=== PATIENT | female | born 1930 | race Caucasian/White ===

== ENCOUNTER 2016-09-27 02:41 | Day surgery (SDC) | payer MEDICARE, OTHER ==
[~2016-09-27] VITALS: Ht 162.6 cm; Wt 60.9 kg
[~2016-09-27 02:41] MED LIST: AMITIZA24 MCG PO; BUTALB-APAP-CA1 EACH PO; COUMADIN2 MG PO; COUMADIN3 MG PO; CRESTOR5 MG PO; DOXYCYCLINE HY100 M2 PO; HYDROCODONE-APA1 TAB PO; NEXIUM40 MG PO; RESTORIL15 MG PO; RYTHMOL225 MG; RYTHMOL225 MG PO; [UNRECOGNIZED DRUG - OTHER]
[2016-09-27 03:33] LABS: APTT 55.2 SECONDS (22.8-39.4)
[2016-09-27 03:35] LABS: ALBUMIN 2.4 g/dL (3.4-5.0); ANION GAP 11.7 mmol/L (8-16); BASOPHILS 0.2 % (0.0-2.0); BILIRUBIN - TOTAL 0.13 mg/dL (0.2-1.3); CALCIUM 7.7 mg/dL (8.5-10.1); CARBON DIOXIDE 23.1 mmol/L (21.0-32.0); CREATININE - SERUM 0.8 mg/dL (0.6-1.3); EOSINOPHILS 1.3 % (0-7); IMMATURE GRANULOCYTES 0.5 % (0-5); LYMPHOCYTES 11.7 % (15-50); MCH 28.9 pg (26.0-34.0); MCHC 31.2 g/dL (31.0-37.0); MCV 92.8 fL (80.0-100.0); MEAN PLATELET VOLUME 10.1 fL (7.4-10.4); MONOCYTES 6.2 % (2-11); NEUTROPHILS 80.1 % (40-80); PLATELET COUNT 193 10x3/uL (130-400); POTASSIUM - SERUM 3.8 mmol/L (3.5-5.1); PROTEIN - SERUM 5.1 g/dL (6.4-8.2); RDW 15.6 % (11.5-14.5); WBC 6.3 10x3/uL (4.8-10.8)
[2016-09-27 03:36] LABS: RBC 1.52 10x6/uL (4.00-5.40)
[2016-09-27 03:37] LABS: HEMATOCRIT 14.1 % (36.0-48.0); HEMOGLOBIN 4.4 g/dL (12-16)
[2016-09-27 03:40] LABS: INR 8.59 (0.85-1.17); PROTIME 72.9 SECONDS (11.6-15.0)
[2016-09-27 03:43] LABS: TROPONIN-I 0.025 ng/mL (0.000-0.060)
--- NOTE | 2016-09-27 05:45 | NUR ---
PT ARRIVES FROM ER VIA STRETCHER. ASSISTED INTO BED VIA NURSES X2. PT WITH BLOOD TRANSFUSING TO HER LT HAND WITHOUT COMPLICATION. VSS, AFEBRILE. MEDICATIONS RECONCILED AT THE BEDSIDE. ADMISSION ASSESSMENT AND HISTORY COMPLETED. PT DENIES ANY CURRENT C/O PAIN. WILL CONT TO MONITOR.
[2016-09-27 05:51] VITALS: BP 100/56; Ht 162.6 cm; Wt 60.9 kg
[2016-09-27] MEDS ORDERED: VITAMIN D250000 UNIT PO (05:51)
[2016-09-27 05:55] VITALS: BP 106/45
--- NOTE | 2016-09-27 07:20 | NUR ---
RECEIVED PT PLAN OF CARE. NO OTHER NEEDS AT THIS TIME. WILL CONTINUE PLAN OF CARE.
--- NOTE | 2016-09-27 07:43 | NUR ---
PT IS ALERT. ASSESSMENT DONE PER FLOWSHEET. NO CO PAIN AT THIS TIME. WILL CONTINUE TO MONITOR.
--- NOTE | 2016-09-27 07:44 | NUR ---
SECOND UNIT PRBC STARTED AT THIS TIME. WILL CONTINUE TO MONITOR.
[2016-09-27 07:49] VITALS: BP 97/46
--- NOTE | 2016-09-27 10:37 | NUR ---
SECOND UNIT PRBC COMPLETE. NO OTHER NEEDS AT THIS TIME.
[2016-09-27 11:47] VITALS: BP 100/46
[2016-09-27 12:26] LABS: HEMATOCRIT 21.8 % (36.0-48.0)
[2016-09-27 12:28] LABS: HEMOGLOBIN 7.2 g/dL (12-16)
--- NOTE | 2016-09-27 13:00 | NUR ---
PT IS ALERT. NO SS OF DISTRESS AT THIS TIME. WILL CONTINUE TO MONITOR.
[2016-09-27 15:54] VITALS: BP 96/44
[2016-09-27 19:05] LABS: HEMATOCRIT 23.8 % (36.0-48.0); HEMOGLOBIN 7.7 g/dL (12-16)
--- NOTE | 2016-09-27 20:00 | NUR ---
REPORT RECEIVED AND CARE ASSUMED. PATIENT IS ALERT AND LYING IN BED READING A BOOK. DENIES ANY NEEDS OR DISCOMFORT. WILL CONTINUE TO MONITOR.
[2016-09-27 20:37] VITALS: BP 121/58
--- NOTE | 2016-09-28 00:01 | NUR ---
MADE NPO PAST MIDNIGHT FOR ECG IN AM WITH TIVA.
--- NOTE | 2016-09-28 00:15 | NUR ---
FIRST UNIT PRBC HUNG PER PROTOCOL WITH NS.
[2016-09-28 00:17] VITALS: BP 107/52
--- NOTE | 2016-09-28 03:15 | NUR ---
BLOOD TRANSFUSION COMPLETED.
--- NOTE | 2016-09-28 03:30 | NUR ---
SECOND UNIT PBBC HUNG.
[2016-09-28 04:29] VITALS: BP 113/56
[2016-09-28 06:01] LABS: BASOPHILS 0.2 % (0.0-2.0); EOSINOPHILS 1.6 % (0-7); IMMATURE GRANULOCYTES 0.9 % (0-5); LYMPHOCYTES 16.7 % (15-50); MCH 28.7 pg (26.0-34.0); MCHC 33.3 g/dL (31.0-37.0); MEAN PLATELET VOLUME 10.1 fL (7.4-10.4); MONOCYTES 7.4 % (2-11); NEUTROPHILS 73.2 % (40-80); RDW 17.1 % (11.5-14.5)
[2016-09-28 06:12] LABS: MCV 86.2 fL (80.0-100.0); PLATELET COUNT 99 10x3/uL (130-400); RBC 3.48 10x6/uL (4.00-5.40); WBC 4.3 10x3/uL (4.8-10.8)
--- NOTE | 2016-09-28 06:30 | NUR ---
SECOND UNIT PRBC COMPLETED. LYING IN BED WITH EYES CLOSED.
[2016-09-28 06:39] LABS: INR 1.33 (0.85-1.17); PROTIME 16.3 SECONDS (11.6-15.0)
[2016-09-28 06:41] LABS: CALCIUM 7.5 mg/dL (8.5-10.1); CARBON DIOXIDE 26.5 mmol/L (21.0-32.0); CHLORIDE - SERUM 109 mmol/L (98-107); CREATININE - SERUM 0.6 mg/dL (0.6-1.3); POTASSIUM - SERUM 3.4 mmol/L (3.5-5.1); SODIUM 143 mmol/L (136-145); eGFR NON AFRICAN AMERICAN > 90 mL/min (90-120)
[2016-09-28 06:50] LABS: CALC OSMOLALITY 285 mosm/kg (275-300); GLUCOSE 86 mg/dL (74-106); UREA NITROGEN 18 mg/dL (7-18)
[2016-09-28 07:06] LABS: PLATELET ESTIMATE DECREASED
--- NOTE | 2016-09-28 07:26 | NUR ---
RECEIVED PT REPORT. WILL CONTINUE PLAN OF CARE. NO OTHER NEEDS AT THIS TIME. WILL CONTINUE TO MONITOR. STUDENT NURSE AT BEDSIDE.
[2016-09-28 07:45] VITALS: BP 122/52
--- NOTE | 2016-09-28 10:26 | CN ---
PATIENT NAME:PRINCESS MULLIGAN MEDICAL RECORD: [id number] : 34 LOCATION:D. D.2110 ADMIT DATE: 09/27/16 ACCOUNT: [id number] CONSULTING PHYSICIAN: RISA HERNANDEZ MD REFERRING PHYSICIAN: WENCESLAO HELM DO DATE OF CONSULTATION: 09/27/2016 REFERRING PHYSICIAN: Dr. Wenceslao Helm. HISTORY OF PRESENT ILLNESS: The patient is an 86-year-old white female with history of AFib and valvular heart disease, on Coumadin therapy, who was basically admitted with progressive weakness and severe anemia with hematocrit of 14 and with a normal MCV. She did have a heme-positive stool. Her INR was 8. She denies any melena, hematochezia or abdominal pain. She is on baby aspirin as well. She denies any other NSAID use. I was asked to see the patient in this regard. She apparently had similar presentation in February of this year. She apparently had an EGD and colonoscopy, which was unremarkable. Her Coumadin was stopped at that time and she had no further problems of anemia until just a month or so ago when she underwent a valvular heart replacement and Coumadin was restarted. Her INR was 8 as noted above and she presented with hematocrit of 14. PAST MEDICAL HISTORY: As above. She also had skin cancer. PAST SURGICAL HISTORY: Remarkable for cataract surgery, appendectomy, tonsillectomy, kidney stone removal, D&C and her recent valvular heart procedure. ALLERGIES: SULFA, TETANUS, PENICILLIN AND CODEINE. HOME MEDICATIONS: Include Coumadin, Amitiza, Restoril, Rythmol, Nexium, Crestor and baby aspirin. FAMILY HISTORY: Negative for GI disease. SOCIAL HISTORY: The patient is nonsmoker. She drinks alcohol on a social basis. REVIEW OF SYSTEMS: Noncontributory. PHYSICAL EXAMINATION: GENERAL: Reveals a well-nourished white female, in no acute distress. VITAL SIGNS: Stable. She is afebrile. CHEST: Clear. HEART: Regular rate and rhythm. ABDOMEN: Soft and nontender. EXTREMITIES: No edema. LABORATORY DATA: Reveals a white count of 6000, hematocrit 14, MCV of 92 and platelet count 193,000. She had been transfused and her hematocrit is now 21.8. Electrolytes are normal. BUN 32 and creatinine 0.8. Liver enzymes are normal. Amylase and lipase are normal. PT is 73. INR is 8.6. IMPRESSION: CONSULT REPORT [id number] PRINCESS MULLIGAN 1. Subacute anemia, recurrent, associated with an elevated INR of unclear etiology, but almost certainly due to her Coumadin use. Her elevated BUN, suggests possible upper gastrointestinal source such as arteriovenous malformation, large hiatal hernia, etc. Again, she apparently had a negative GI workup in February of 2016, but I do not have the details of that. I will try to get these. 2. History of atrial fibrillation and valvular heart disease. RECOMMENDATIONS: 1. Reverse her Coumadin for now. 2. EGD in a.m. 3. Transfuse to hematocrit of around 28. TRANSINT:[id number] Voice Confirmation ID: [id number] DOCUMENT ID: [id number] RISA HERNANDEZ MD at 1026 CC: WENCESLAO HELM DO [id number] DICTATION DATE: 09/27/16 1321 PAN RECLAIM PROCESSOR: 09/27/16 1846 ADM IN [facility] [address] [id number]
--- NOTE | 2016-09-28 10:58 | NUR ---
AVM CAUTERIZED WITH GOLD PROBE.
[2016-09-28] MEDS ORDERED: VITAMIN D250000 UNIT PO (11:37)
[2016-09-28] MEDS ORDERED: PROTONIX40 MG PO (11:37)
[2016-09-28] MEDS ORDERED: COUMADIN2 MG PO (11:38)
[2016-09-28 11:57] VITALS: BP 103/41
--- NOTE | 2016-09-28 12:18 | NUR ---
PT IS ALERT. ASSESSMENT DONE PER FLOWSHEET. NO OTHER NEEDS AT THIS TIME WILL CONTINUE TO MONITOR.
--- NOTE | 2016-09-28 13:51 | HP ---
PATIENT: PRINCESS MULLIGAN MEDICAL RECORD: [id number] ACCOUNT: [id number] LOCATION:[facility] [place] D.2110 : 32 ADMISSION DATE: 09/27/16 HISTORY AND PHYSICAL EXAMINATION DATE OF ADMISSION: 09/27/2016. CHIEF COMPLAINT: This is an 86-year-old female who states that since , she has had some abdominal discomfort. She has had dizziness. States that she developed diffuse diarrhea last night, presented to the Emergency Room where she was found to be profoundly anemic and have excessive anticoagulation and felt the patient should be admitted. PAST MEDICAL HISTORY: Apparently, the patient recently had mitral valve surgery at [facility] in August. PAST SURGICAL HISTORY: She had an appendectomy. She had a D&C times 2. She had lithotripsy. She has had a right kidney stone removal. She had a tonsillectomy, cataract surgery. She is a AB 2. The patient has had a history of atrial fibrillation in the past as well as COPD. She has had anemia, hyperlipidemia. ALLERGIES: INCLUDE HYDROCODONE, PENICILLIN, SULFA, TETANUS. MEDICATIONS: Includes 1. Amitiza 24 mcg 1 p.o. b.i.d. 2. Aspirin 325 once a day. 3. Baclofen 10 mg 1 p.o. q.i.d. 4. Butalbital/acetaminophen/caffeine 50 mg/325 mg/40 mg 1 p.o. q.4 hours p.r.n. pain. 5. Crestor 10 mg 1 p.o. daily. 6. Vitamin B12 at 1 cc monthly. 7. Ferrous sulfate 325 one p.o. daily. 8. Coumadin 5 mg 1 p.o. daily. 9. Nexium 40 mg once a day. 10. Rythmol 225 mg p.o. q.8 hours. 11. Restoril 15 mg p.o. q.h.s. 12. Toprol 25 mg 1 p.o. daily. 13. Vitamin D2 at 50,000 units monthly. FAMILY HISTORY: Father had diabetes, also had a CVA. Mother had a CVA as well. SOCIAL HISTORY: The patient was a former smoker, stopped in 2006. 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 Educated 4 years college. No history of ethanol abuse. REVIEW OF SYSTEMS: CONSTITUTIONAL: She denies any headaches, seizure or syncope. She denies any change in visual or auditory acuity. PULMONARY: She does report having increasing shortness of breath. CARDIOVASCULAR: She has had no chest pain, palpitation, PND or orthopnea. GASTROINTESTINAL: She has had chronic nausea. She has had loose stools. GENITOURINARY: No urgency, frequency, or dysuria. PHYSICAL EXAMINATION: VITAL SIGNS: The patient's pulse ox is 95%. Her blood pressure 100/56, HISTORY AND PHYSICAL [id number] MULLIGAN,SCHEVAUN R respirations 20, pulse 78, temperature 98. HEENT: Head is normocephalic. No lesions. Ears: TMs clear. Eyes: Pupils equal, round and reactive to light. Extraocular movements intact. Nasal cavity, oral cavity and oropharynx clear. NECK: Supple. There is no adenopathy. HEART: Slightly tachycardic. LUNGS: Clear. ABDOMEN: Soft, nontender, bowel sounds are positive. EXTREMITIES: Lower extremities have no edema. LABORATORY DATA: White count of 6.3, hemoglobin is 4.4, hematocrit 14.1, red cells 1.52 and platelets are 193. She had a PT of 72.9, INR 8.59. Sodium was 140, potassium 3.8, chloride 109, CO2 is 23, BUN 32 and creatinine is 0.8. Blood sugar is 195, lactic acid 2.4. ProBNP was 1703. ASSESSMENT: 1. Profound anemia. 2. Excessive anticoagulation. 3. History of mitral valve surgery. 4. History of atrial fibrillation. 5. Gastroesophageal reflux. 6. Prior history in February of last year having a gastrointestinal bleed with a negative EGD and colonoscopy showing diverticulosis. Apparently, this was done out of town. PLAN: The patient is admitted. She will be typed and crossed and transfused 2 units of packed red blood cells. The patient will also have her H&H checked q.6 hours. If the hemoglobin and hematocrit is less than 10 and 30, we will transfuse 1 unit, if below 7 and 24 transfuse 2 units. The patient will get a GI consultation. Also, we will hold her Coumadin. She was given vitamin K in the Emergency Room. We will continue to follow her PT/INR. TRANSINT:[id number] Voice Confirmation ID: [id number] DOCUMENT ID: [id number] APOORVA FLORES MD at 1351 CC: [id number] DICTATION DATE: 09/27/16 1043 TRAVEL MANAGER: 09/27/16 1245 ADM IN [id number] [place] [address]
[2016-09-28 15:03] VITALS: BP 99/42
--- NOTE | 2016-09-28 15:08 | NUR ---
DC TEACHING COMPLETE. NO OTHER NEEDS IV REMOVED.
--- NOTE | 2016-10-07 07:21 | DS ---
PATIENT:PRINCESS MULLIGAN :34 MEDICAL RECORD: [id number] DISCHARGE SUMMARY ADMISSION DATE: 09/27/16 DISCHARGE DATE: 09/28/16 DATE OF ADMISSION: 09/27/2016 DATE OF DISCHARGE: 09/28/2016 CONDITION ON DISCHARGE: Improved. ADMITTING DIAGNOSES: Profound anemia, excessive anticoagulation, history of recent mitral valve heart surgery, history of gastroesophageal reflux as well as atrial fibrillation. 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 HOSPITAL COURSE: This patient is an 86-year-old female who states that since , she developed abdominal discomfort. The patient had developed dizziness as well as diffuse diarrhea. The patient presented to the Emergency Room where she was found to be profoundly anemic. Her hemoglobin was 4, hematocrit was 14. She had excessive anticoagulation. The patient's PT was 72.9. Her INR was 8.59. Her proBNP was 1703. Her hemoglobin was 6.3. Her platelets were 199. BUN was 32, creatinine 0.8. The patient was admitted, typed and crossed, transfused with blood, also given 2 units of fresh frozen plasma, also given vitamin K. She was seen in consultation by Dr. Osuna. She was taken to the GI lab on the morning of the where she underwent an EGD showing esophagitis and scant gastritis. Biopsy was taken. Normal duodenum. 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 This was cauterized. The patient's hemoglobin was 10, hematocrit was 30.8. Her platelets were 99. Her white blood cell count was 4.3. Her PT was 16.3, INR was 1.33. It was felt the patient was stable and was ready for discharge. PHYSICAL EXAMINATION: VITAL SIGNS: She was afebrile. Her pulse was 75, respirations were 16, her blood pressure was 122/52, O2 sat was 100%. HEENT: Her head is normocephalic. No lesions. Ears: TMs clear. Eyes: Pupils equal, round and reactive to light. Extraocular movements intact. Nasal cavity, oral cavity and oropharynx clear. NECK: Supple. No adenopathy. HEART: Regular rhythm. No murmurs, gallops or rubs. LUNGS: Clear. ABDOMEN: Soft and nontender. 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 PLAN: The patient will be discharged home today. She will follow up with Dr. Espinoza on Thursday. DISCHARGE MEDICATIONS: The patient's medications will be Coumadin 2 mg 1 p.o. daily, Rythmol 225 mg p.o. q.8 hours, Crestor 10 mg once a day, temazepam 15 mg p.o. q.h.s. p.r.n. insomnia, butalbital/APAP/caffeine 50/325/40 one p.o. q.4 DISCHARGE SUMMARY REPORT [id number] PRINCESS MULLIGAN R hours p.r.n. severe headaches. She will be on Protonix 40 mg p.o. b.i.d. and Amitiza 24 mcg b.i.d. TRANSINT:[id number] Voice Confirmation ID: [id number] DOCUMENT ID: [id number] APOORVA FLORES MD at 0721 CC: [id number] DICTATION DATE: 09/28/16 1135 CLIPPER OPERATOR: 09/29/16 0000 [facility] 09/28/16 [address] [place] [address]
--- NOTE | 2016-10-09 19:43 | PRO ---
PATIENT:PRINCESS MULLIGAN MEDICAL RECORD: [id number] : 34 LOCATION:D.OPS ADMISSION DATE: 09/27/16 PROCEDURE PERFORMED BY: RISA OSUNA MD DATE OF PROCEDURE: 09/28/2016 HAT DESIGNER: Risa Osuna MD PROCEDURE: EGD with biopsy and cauterization of an AVM. INDICATION: The patient is an 86-year-old white female with a history of AFib and valvular heart disease, on chronic Coumadin therapy, who basically was admitted with severe anemia with hematocrit around 15, a normal MCV, and a heme-positive stool. Her INR was almost 9. Apparently, she had a similar episode requiring hospitalization in [place] this past summer and underwent both an EGD and colonoscopy at that time. Her EGD was normal. Her colonoscopy was normal other than mild diverticulosis. Her Coumadin was stopped, and she had no further issues until about a month ago when she apparently had valvular heart surgery and Coumadin was restarted. She now was admitted with severe symptomatic anemia. She denies any melena or hematochezia. PREMEDICATION: Taper anesthesia. INSTRUMENT: Olympus video gastroscope. FINDINGS: The endoscope was passed through the oropharynx to the second portion of the duodenum without difficulty. The esophagus, stomach, and duodenum were all completely normal other than scant gastritis and what looked like an AVM in the fundus of the stomach. It was not bleeding, but I went ahead and cauterized with a gold probe using 30 joules. The rest of exam was normal. The patient tolerated the procedure well without immediate complication. IMPRESSION: 1. Small arteriovenous malformation-looking lesion in the fundus of the stomach, possibly the cause of heme-positive stool with hypercoagulation from her Coumadin, now status post cauterization. 2. Scant gastritis, status post biopsy to rule out Helicobacter pylori. 3. Otherwise, normal esophagogastroduodenoscopy. RECOMMENDATIONS: 1. Follow up biopsy results. 2. Okay to advance diet and probably okay for discharge home. 3. Probably okay to resume Coumadin but at much lower dosage. 4. I would follow her hematocrit and INR closely as an outpatient. Depending on the above, could consider small bowel capsule endoscopy in the future. TRANSINT:[id number] Voice Confirmation ID: [id number] DOCUMENT ID: [id number] PROCEDURE NOTE [id number] PRINCESS MULLIGAN JOHN MD at 1943 CC: JEANA HELM DO [id number] DICTATION DATE: 09/28/16 1050 MOSS PICKER: 09/28/16 2143 [facility] 09/28/[id number] [id number]
== END 2016-09-28 15:13 | disposition home or self-care (01) ==
LOC: OBSVTIME → D.ER 02:41 → OBSVTIME 03:45 → D.M2 03:45 → D.ER 03:45 → D.OPS 03:45 → D.M2 03:45 → EDSTATUS 13:48 → D.M2 09-28 15:13 → D.OPS 09-28 15:13
PROVIDERS: Family Medicine; Internal Medicine Gastroenterology
PROC: 0D568ZZ Destruction of Stomach, Via Natural or Artificial Opening Endoscopic (ICD-10-PCS; 2016-09-28)
PROC: 0DB68ZX Excision of Stomach, Via Natural or Artificial Opening Endoscopic, Diagnostic (ICD-10-PCS; principal; 2016-09-28 10:00)
DX: D64.9 Anemia, unspecified (principal); K31.819 Angiodysplasia of stomach and duodenum without bleeding; J44.9 Chronic obstructive pulmonary disease, unspecified; E78.5 Hyperlipidemia, unspecified; I48.91 Unspecified atrial fibrillation; Z79.01 Long term (current) use of anticoagulants; K29.70 Gastritis, unspecified, without bleeding; T45.515A Adverse effect of anticoagulants, initial encounter; K21.9 Gastro-esophageal reflux disease without esophagitis; Z95.2 Presence of prosthetic heart valve

== ENCOUNTER 2016-12-21 07:47 | Inpatient (IN) | payer MEDICARE, OTHER ==
[2016-12-21] VITALS (12 sets, daily range): BP systolic 102–115; BP diastolic 50–64; BMI 23.8
[~2016-12-21] VITALS: Ht 162.6 cm; Wt 62.1 kg
[~2016-12-21 07:47] MED LIST changes: +PROTONIX40 MG PO; +RYTHMOL SR225 MG PO; -RYTHMOL225 MG PO; +VITAMIN D250000 UNIT PO
[2016-12-21 08:47] LABS: BASOPHILS 0.3 % (0.0-2.0); EOSINOPHILS 2.1 % (0-7); IMMATURE GRANULOCYTES 0.3 % (0-5); MCHC 32.7 g/dL (31.0-37.0); MCV 91.7 fL (80.0-100.0); MONOCYTES 7.9 % (2-11); NEUTROPHILS 73.4 % (40-80); RBC 2.17 10x6/uL (4.00-5.40); RDW 14.3 % (11.5-14.5); WBC 3.8 10x3/uL (4.8-10.8)
[2016-12-21 08:50] LABS: HEMATOCRIT 19.9 % (36.0-48.0); HEMOGLOBIN 6.5 g/dL (12-16); PLATELET COUNT 153 10x3/uL (130-400)
[2016-12-21 08:54] LABS: INR 1.15 (0.85-1.17); PROTIME 14.6 SECONDS (11.6-15.0)
[2016-12-21 09:02] LABS: ANION GAP 11.4 mmol/L (8-16); BILIRUBIN - TOTAL 0.18 mg/dL (0.2-1.3); CREATININE - SERUM 0.8 mg/dL (0.6-1.3); MAGNESIUM - SERUM 1.5 mg/dL (1.8-2.4); POTASSIUM - SERUM 3.4 mmol/L (3.5-5.1); PROTEIN - SERUM 6.2 g/dL (6.4-8.2)
[2016-12-21 17:10] LABS: HEMATOCRIT 25.3 % (36.0-48.0); HEMOGLOBIN 8.5 g/dL (12-16)
--- NOTE | 2016-12-21 17:35 | NUR ---
PT ARRIVED FROM ER BY STRETCHER. ASSISTED OVER TO BED. CALL LIGHT WITHIN REACH.
--- NOTE | 2016-12-21 18:15 | NUR ---
PT'S AT BEDSIDE. UPDATED ON PT'S STATUS.
[2016-12-21] MEDS ORDERED: BAYER CHEWABLE81 MG PO (18:27)
[2016-12-21] MEDS ORDERED: PLAVIX75 MG PO (18:27)
--- NOTE | 2016-12-21 19:40 | NUR ---
Assessment complete. See flowsheet. Pt awake, alert, oriented x4 and following all commands and conversation with no neuro deficits noted. O2 RA. Respirations even and unlabored. Lung sounds CTA. HR SR with S1S2 auscultated. All peripheral pulses +2 with capillary refill <3 seconds. BS + to all quadrants. Pt helped up to bedside toilet for void clear/yellow urine. Steady gait. 5/5 strength to all extremities. Right hand 22g PIV site CDI no s/s infection or infiltration with NS infusing @ 100cc/hr with Protonix gtt @ 8mg/hr. Left A/C 20g PIV site CDI saline locked no s/s infection. Pt self-positioned for comfort back to bed. VSS. Pain denied. Dr. Pollard contacted regarding med rec. Temp 98.0F. Call light and bedside table within pt reach. CPOC.
--- NOTE | 2016-12-21 21:15 | NUR ---
PRBC unit infusion initiated. VSS and recorded to trx slip. Clear soda provided per pt request. CPOC.
--- NOTE | 2016-12-21 21:40 | NUR ---
Pt reading quietly. VSS. CPOC.
--- NOTE | 2016-12-21 22:45 | NUR ---
PRBC unit infusion completed. VSS and recorded to trx slip. PIV site saline locked. Pt helped up to bedside toilet for void.
--- NOTE | 2016-12-21 23:40 | NUR ---
Reassessment complete. See flowsheet. Pt self-positioned to left side and resting with VSS. NO s/s pain or distress. Bedside toilet emptied of 400c clear/yellow urine. O2 RA. Lung sounds CTA. HR SR. BS +. NO deficits noted. Call light and bedside table remain within pt reach. CPOC.
[2016-12-21 23:57] LABS: HEMATOCRIT 26.9 % (36.0-48.0); HEMOGLOBIN 9.2 g/dL (12-16)
[2016-12-22] VITALS (24 sets, daily range): BP systolic 87–123; BP diastolic 41–89; Ht 162.6 cm; Wt 62.1 kg
--- NOTE | 2016-12-22 01:40 | NUR ---
Pt resting quietly; self-positioned to left side with no s/s pain or distress and allowed to continue resting undisturbed. Call light and bedside table remain within pt reach. CPOC.
--- NOTE | 2016-12-22 05:40 | NUR ---
Pt resting to left side with VSS. NO s/s pain or distress.
--- NOTE | 2016-12-22 07:00 | NUR ---
ASSESSMENT COMPLETE. VOICES NO CO AT TIME.
--- NOTE | 2016-12-22 08:09 | HP ---
PATIENT: PRINCESS MULLIGAN MEDICAL RECORD: [id number] ACCOUNT: [id number] LOCATION:[facility] D.2311 : 32 ADMISSION DATE: 12/21/16 HISTORY AND PHYSICAL EXAMINATION HISTORY OF PRESENT ILLNESS: A 86-year-old female, who presented to the Emergency Room with repeated episodes of rectal bleeding, started ____ had a similar episode in September, requiring intervention and multiple transfusions, I believe 6 total units. PAST MEDICAL HISTORY: Significant for AFib, anemia, valve replacement, Watchman appendage closure device. LISTED MEDICATIONS: Amitiza, aspirin, Plavix, baclofen, butalbital, acetaminophen, and caffeine p.r.n. headaches, Crestor, ferrous sulfate, vitamin B12, Rythmol, Restoril, Toprol, vitamin D2. FAMILY HISTORY: Significant for father with diabetes and CVA. Mother had CVA. 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 No history of alcohol abuse. REVIEW OF SYSTEMS: GENERAL: No acute change in weight or appetite. HEENT: No cephalgia, visual changes, tinnitus, epistaxis or dysphagia. CARDIOVASCULAR: Denies chest pain or palpitations. Extensive history as above. PULMONARY: Denies hemoptysis, denies night sweats. GASTROINTESTINAL: Admits rectal bleeding with history of previous GI bleeds. GENITOURINARY: Denies dysuria, denies change in frequency. MUSCULOSKELETAL: No acute changes. ENDOCRINE: Denies polyuria, polydipsia, or polyphagia. PHYSICAL EXAMINATION: VITAL SIGNS: Temperature 97.8, blood pressure 119/60, heart rate 92, respirations 16, O2 sats 100% on 2 liters via nasal cannula. Alert, oriented, appears comfortable. Blood transfusion in process. HEENT: Normocephalic, atraumatic. Eyes: Pupils equal, round, reactive to light and accommodation. Extraocular muscles intact. Conjunctiva was not injected. Ears: Canals patent. TMs are intact. Nose: Nares patent without drainage. Throat: No erythema, no exudates. NECK: Supple. No lymphadenopathy. HEART: Regular rate and rhythm. No S3 or S4. There is a click consistent with valve replacement. LUNGS: Clear to auscultation bilaterally. Breathing is nonlabored. ABDOMEN: Soft, nontender, bowel sounds positive. EXTREMITIES: Present times 4, no edema. NEUROLOGIC: Intact. LABORATORY DATA: H&H in the ER, hematocrit is 19.9, hemoglobin 6.9. ASSESSMENT AND PLAN: Acute gastrointestinal bleed. The patient awaiting transfer to the ICU, bed is full, supportive care. Resume home medications. Gastrointestinal consulted. Serial H&H. Continue transfusion as indicated. TRANSINT:[id number] Voice Confirmation ID: [id number] DOCUMENT ID: [id number] HISTORY AND PHYSICAL [id number] PRINCESS MULLIGAN ROBERT DO at 0809 CC: [id number] DICTATION DATE: 12/21/16 1329 JOINT SUPERVISOR: 12/21/16 1513 ADM IN [id number] [place] [address]
[2016-12-22 08:21] LABS: HEMATOCRIT 27.1 % (36.0-48.0); HEMOGLOBIN 9.2 g/dL (12-16)
--- NOTE | 2016-12-22 11:00 | NUR ---
REASSESSED. NO CHANGES FROM INITIAL ASSESSMENT.
--- NOTE | 2016-12-22 13:54 | NUR ---
SITTING UP IN CHAIR BUSHING TEETH NO CO AT TIME.
--- NOTE | 2016-12-22 16:14 | NUR ---
Patient Name: PRINCESS MULLIGAN Admission Status: ER Accout number: [id number] Admission Date: 12-21-2016 : 1932 Admission Diagnosis: Attending: PAIGE Current LOS: 1 Anticipated DC Date: 12-25-2016 Planned Disposition: Home Primary Insurance: MEDICARE A & B Discharge Planning Comments: CM MET WITH PATIENT REGARDING D/C NEEDS AND PLANS. PATIENT STATED SHE LIVES WITH HER SPOUSE (MIRIAN) AND HE WILL DRIVE HER HOME AT DISCHARGE. PATIENT STATED THERE ARE NO STEPS OR STAIRS AT HER HOME. PATIENT IS INDEPENDENT WITH HER CARE AND HAS A WALKER AND CANE AT HOME IF NEEDED. PATIENTS PCP IS DR. HELM AND PHARMACY IS [facility]. PATIENT DOES NOT WANT HOME HEALTH. PATIENT STATED [place] WITHIN 1-2 WEEKS. CM WILL CONTINUE TO FOLLOW PATIENT WITH D/C NEEDS AND PLANS. PCP DR. HELM [facility]- [phone] MIRIAN MULLIGAN (SPOUSE) [phone] Clay Shop Supervisor: Mago Gamino Is the patient Alert and Oriented? Yes 0 * How many steps to enter\exit or inside your home? 0 0 * PCP DR. HELM 0 * Pharmacy [facility] 0 * Preadmission Environment Home with Family 0 * ADLs Independent 0 * Equipment Cane Walker 0 * List name and contact numbers for known caregivers / representatives who currently or will assist patient after discharge: MIRIAN MULLIGAN (SPOUSE)[phone] * Community resources currently utilized None 0 * Additional services required to return to the preadmission environment? Yes 0 * Can the patient safely return to the preadmission environment? Yes 0 * Has this patient been hospitalized within the prior 30 days at any hospital? No 0 Grand Total: 0
[2016-12-22 16:23] LABS: HEMATOCRIT 27.4 % (36.0-48.0); HEMOGLOBIN 8.8 g/dL (12-16)
--- NOTE | 2016-12-22 19:00 | NUR ---
Received patient resting in bed with eyes open, Assessment completed per flowsheet. Patient AO x4, calm and cooperative. Eyes PERRLA @ 3mm with brisk response, sclera is white. S1/S2 noted with patient NSR on telemetry, rhythmic and regular. Breathing is even and effortless on room air, lung sounds clear all cummings. Abdomen is soft and flat, nontender with bowel sounds active x4. Patient ambulates self to bedside commode, no difficulties noted. Full ROM all extremities with all pulses palpable, infusion therapy nurse/pedal strength is equal and bilateral. 20g PIV noted L AC, patent with fluids infusing. Patient denies pain or other needs at this time, all VSS and will continue to monitor.
--- NOTE | 2016-12-22 21:00 | NUR ---
No visitors at this time, patient resting in bed with eyes open reading. Denies needs at this time, all VSS and will continue to monitor.
--- NOTE | 2016-12-22 23:00 | NUR ---
Reassessment completed per flowsheet, patient resting in bed with eyes closed. Patient NSR on telemetry, rhythmic and regular. All pulses palpable with cap refill <3 sec. Breathing is even and effortless on room air, O2 sat 97%. 1 unit PRBC infusing, no s/s of reaction at this time. Denies pain or other needs at this time, all VSS and will continue to monitor.
[2016-12-23] VITALS (12 sets, daily range): BP systolic 98–124; BP diastolic 40–90
[2016-12-23] LABS: HEMATOCRIT 28.8 % (36.0-48.0); HEMOGLOBIN 9.8 g/dL (12-16)
--- NOTE | 2016-12-23 02:00 | NUR ---
L AC IV "came out", IV resited by Leia larkin. Patent with fluids infusing, will continue to monitor.
--- NOTE | 2016-12-23 03:00 | NUR ---
Reassessment completed per flowsheet, patient resting in bed with eyes open reading. Patient NSR on telemetry, rhythmic and regular. Breathing is even and unlabored on room air, O2 sat 98%. Patient states she "feels great and ready to go home", instructed patient to discuss plans with physician. Denies pain or other needs at this time, all VSS and will continue to monitor.
[2016-12-23 05:47] LABS: ALBUMIN 2.6 g/dL (3.4-5.0); ALKALINE PHOSPHATASE 38 U/L (46-116); ALT (SGPT) 14 U/L (10-68); CALC OSMOLALITY 284 mosm/kg (275-300); CALCIUM 8.1 mg/dL (8.5-10.1); CARBON DIOXIDE 26.9 mmol/L (21.0-32.0); CHLORIDE - SERUM 112 mmol/L (98-107); CREATININE - SERUM 0.6 mg/dL (0.6-1.3); GLUCOSE 85 mg/dL (74-106); MAGNESIUM - SERUM 1.7 mg/dL (1.8-2.4); POTASSIUM - SERUM 3.5 mmol/L (3.5-5.1); PROTEIN - SERUM 5.3 g/dL (6.4-8.2); SODIUM 144 mmol/L (136-145); eGFR NON AFRICAN AMERICAN > 90 mL/min (90-120)
[2016-12-23 06:00] LABS: UREA NITROGEN 11 mg/dL (7-18)
[2016-12-23 07:54] LABS: HEMATOCRIT 30.4 % (36.0-48.0); HEMOGLOBIN 10.2 g/dL (12-16)
--- NOTE | 2016-12-23 17:55 | NUR ---
0700 PT AWAKE ALERT AND ORIENTED X4. ABLE TO OBEY COMMANDS AND RESPOND APPROPRIATELY. DENIES PAIN. NORMAL SINUS ON MONTIOR. LUNG SOUNDS CLEAR. VITAL SIGNS STABLE. WILL CONTINUE TO MONITOR
--- NOTE | 2016-12-23 17:56 | NUR ---
1100 TRANSFER ORDERS IN COMPUTER AND COMPOSITION TILE LAYER NOTIFIED. WAITING FOR ROOM. PT STABLE
--- NOTE | 2016-12-23 18:45 | CN ---
PATIENT NAME:PRINCESS MULLIGAN MEDICAL RECORD: [id number] : 34 LOCATION:PENGD.[id number] ADMIT DATE: 12/21/16 ACCOUNT: [id number] CONSULTING PHYSICIAN: RISA HERNANDEZ MD REFERRING PHYSICIAN: JEANA HELM DO DATE OF CONSULTATION: 12/22/2016 Gastrointestinal Consultation DATE OF CONSULTATION: 12/22/2016 REFERRING PHYSICIAN: Dr. Jeana Helm. HISTORY OF PRESENT ILLNESS: This patient is an 86-year-old white female with history of atrial fibrillation and valvular heart disease on long-term anticoagulation therapy, namely Coumadin for many years and recently status post "Watchman procedure" when she was switched from Coumadin to Plavix and aspirin, was basically readmitted with recurrent anemia and weakness and a heme-positive stool. This is now her third admission for basically the same issues. She had a presentation in February of this year, I believed in [place] where she had an EGD and colonoscopy, which were normal other than mild diverticulosis. Her Coumadin was stopped at that time and she had no further bleeding until it was restarted after valvular heart replacement. I believed in August of last year. She was admitted with INR of 8 and hematocrit 14. 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 The rest of her stomach was normal. Biopsy negative for H. pylori. She had no further bleeding and was discharged. She again did well, but then was started on Plavix and aspirin as noted above and now presents with some questionable melena and heme-positive stool as noted above. On further chart review, it looks like ____ the colonoscopy in June 2011, which revealed mild sigmoid diverticulosis and a diminutive polyp, which removed small internal hemorrhoids. She claims she has had 2 more ____ [place] as noted above. PAST MEDICAL HISTORY: As above. She also had skin cancer. PAST SURGICAL HISTORY: Remarkable for cataract surgery, appendectomy, tonsillectomy, kidney stone removal, D&C and a recent valvular heart procedure and a Watchman procedure. ALLERGIES: SULFA, TETANUS, PENICILLIN AND CODEINE. HOME MEDICATIONS: Include Plavix, aspirin, Restoril, Rythmol, Crestor, and a PPI. FAMILY HISTORY: Negative for GI disease. SOCIAL HISTORY: The patient is nonsmoker, drinks alcohol on social basis. REVIEW OF SYSTEMS: Noncontributory other than in the HPI. PHYSICAL EXAMINATION: CONSULT REPORT [id number] PRINCESS MULLIGAN GENERAL: Reveals an elderly white female, in no acute distress. VITAL SIGNS: Stable. She is afebrile. CHEST: Clear. HEART: Regular rate and rhythm. ABDOMEN: Soft and nontender. EXTREMITIES: Show no edema. LABORATORY DATA: Revealed a hematocrit of 17 on admission, is now 27 after transfusion. INR is 1.15. Electrolytes were normal. BUN was 31 on admission, creatinine 0.8. Liver enzymes are normal. IMPRESSION: 1. 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 2. History of known mild sigmoid diverticulosis. RECOMMENDATION: 1. Transfuse to hematocrit of 30. 2. Regular diet. 3. Okay for discharge tomorrow, off aspirin and Plavix for a few days. 4. Resume Plavix only (no aspirin) this weekend. 5. If she rebleeds on Plavix, then I expect she will need a small bowel capsule endoscopy and possibly repeat EGD to look for other AVMs. I do not see need for colonoscopy. TRANSINT:[id number] Voice Confirmation ID: [id number] DOCUMENT ID: [id number] RISA HERNANDEZ MD at 1845 CC: JEANA HELM DO [id number] DICTATION DATE: 12/22/161900 SENIOR ENVIRONMENTAL TECHNICIAN: 12/23/16 0320 ADM IN [facility] [address] [place] [address]
--- NOTE | 2016-12-23 21:00 | NUR ---
Family at bedside for visitation, no questions at this time. HS meds given without difficulty, no further needs at this time. All VSS and will continue to monitor.
--- NOTE | 2016-12-23 22:13 | NUR ---
Recived patient resting in bed with eyes open, Assessment completed per flowsheet. AO x4, calm and cooperative. Eyes PERRLA @ 3mm with brisk response, patient wears glasses. S1/S2 noted with NSR on telemetry, rhythmic and regular. Breathing is even and unlabored on room air, lung sounds clear all cummings. Abdomen is soft and flat, bowel sounds active x4. Patient ambulates to bedside commode without assistance, no difficulties reported. Full ROM all extremities with all pulses palpable, cap refill < 3 sec. 22g PIV R forearm, patent with fluids infusing. Patient states chronic back pain from prior surgery 09/16, repositioned for comfort. No further needs at this time, all VSS and will continue to monitor.
--- NOTE | 2016-12-23 23:30 | NUR ---
Patient resting in bed with eyes closed. Patient is NSR on telemetry, rhythmic and regular. Breathing is even and unlabored on room air, O2 sat 99%. Denies pain or other needs at this time, all VSS and will continue to monitor.
--- NOTE | 2016-12-24 00:24 | NUR ---
Report called to Cecilia DEAN, patient to [facility] to 2109.
--- NOTE | 2016-12-24 00:40 | NUR ---
RECIEVED TO ROOM 2109 FROM ICU VIA . VITALS STABLE, 97.8, 113/53, HR 68, 16 RESP, 97% ON ROOM AIR. PT A&O, IV TO RIGHT FOREARM WITH NS INFUSING AT KVO, AND PROTONIX DRIP AT 10. IV SITE CLEAN AND DRY. PT DENIES PAIN OR NEEDS, BED LOW, CL IN REACH.
--- NOTE | 2016-12-24 02:19 | NUR ---
RESTING WITH EYES CLOSED, RESPERATIONS EVEN, NO S/S DISTRESS NOTED.
[2016-12-24 04:00] VITALS: BP 137/69
[2016-12-24 05:39] LABS: BASOPHILS 0.3 % (0.0-2.0); EOSINOPHILS 2.3 % (0-7); HEMATOCRIT 30.1 % (36.0-48.0); HEMOGLOBIN 10.1 g/dL (12-16); IMMATURE GRANULOCYTES 0.3 % (0-5); LYMPHOCYTES 17.7 % (15-50); MCH 29.3 pg (26.0-34.0); MCHC 33.6 g/dL (31.0-37.0); MCV 87.2 fL (80.0-100.0); MEAN PLATELET VOLUME 10.3 fL (7.4-10.4); MONOCYTES 10.1 % (2-11); NEUTROPHILS 69.3 % (40-80); PLATELET COUNT 129 10x3/uL (130-400); RBC 3.45 10x6/uL (4.00-5.40); RDW 15.9 % (11.5-14.5)
[2016-12-24 05:46] LABS: CALCIUM 7.9 mg/dL (8.5-10.1); CARBON DIOXIDE 26.3 mmol/L (21.0-32.0); CREATININE - SERUM 0.6 mg/dL (0.6-1.3); GLUCOSE 83 mg/dL (74-106); UREA NITROGEN 11 mg/dL (7-18); eGFR NON AFRICAN AMERICAN > 90 mL/min (90-120)
[2016-12-24 06:15] LABS: CALC OSMOLALITY 284 mosm/kg (275-300); CHLORIDE - SERUM 110 mmol/L (98-107); POTASSIUM - SERUM 3.3 mmol/L (3.5-5.1); SODIUM 144 mmol/L (136-145)
--- NOTE | 2016-12-24 07:00 | NUR ---
PT SITTING UP IN BED DENIES NEEDS WILL CONT TO MONITOR
[2016-12-24 07:18] LABS: MAGNESIUM - SERUM 1.5 mg/dL (1.8-2.4); PHOSPHOROUS 3.3 mg/dL (2.5-4.9)
[2016-12-24 07:49] VITALS: BP 112/51
--- NOTE | 2016-12-24 09:06 | NUR ---
PT REFUSES SCD
--- NOTE | 2016-12-24 09:27 | NUR ---
PT SITTING UP IN BED DENIES NEEDS OTHER THAN WANTING TO GO HOME. DR CARTER ROUNDED FOR DR HELM TODAY. PT SAYS HE CAME AND SAW HER AND WOULD REVIEW HER CHART FOR CANDIDATE TO DC. NO NOTE YET.
[2016-12-24 11:29] VITALS: BP 121/60
--- NOTE | 2016-12-24 15:04 | NUR ---
PT SITTING UP IN BED, HAS WALKED THE ENTIRE UNIT SEVERAL TIMES WITH HER SISTER. READY TO GO HOME. DR FERNANDEZ JUST PUT IN DC ORDERS. WILL DC PT WHEN PAPERWORK READY
[2016-12-24 15:15] VITALS: BP 113/60
--- NOTE | 2016-12-24 15:30 | NUR ---
Patient Name: PRINCESS MULLIGAN Encounter No: [id number] : 1930 Primary Insurance: MEDICARE A & B Anticipated DC Date: 12-24-2016 DCP follow-up note: CM MET WITH PT IN ROOM TO DISCUSS DISCHARGE NEEDS AND PLANNING. CM DISCUSSED AVAILABILITY OF HOME HEALTH, REHAB SERVICES AND MEDICAL EQUIPMENT. PT DENIES DISCHARGE NEEDS. SPOUSE TO TRANSPORT HOME AT DISCHARGE. IMPORTANT MESSAGE FROM MEDICARE PROVIDED AND EXPLAINED. Von Cheng, CASE MANAGEMENT
--- NOTE | 2016-12-24 15:49 | NUR ---
PT HAD LAB ORDERED. PT REFUSED FOR LAB TO BE DONE BECAUSE SHE IS ABOUT TO GO HOME
--- NOTE | 2016-12-24 16:09 | NUR ---
WENT OVER DC PAPERWORK WITH PT PT VERBALIZES UNDERSTANDING. DC PIV WITH CATH TIP INTACT. PT GETTING DRESSED AND WILL WHEEL PT OUT.
== END 2016-12-24 16:59 | disposition home or self-care (01) | DRG 811 ==
LOC: D.ER 07:47 → D.M2 09:15 → D.SDCHOLD 09:15 → D.ICU 09:15 → D.M2 12-24 00:34
PROVIDERS: Emergency Medicine; Internal Medicine Gastroenterology; ADMIT Family Medicine
DX: D64.9 Anemia, unspecified (principal); K55.21 Angiodysplasia of colon with hemorrhage; I48.91 Unspecified atrial fibrillation; Z79.01 Long term (current) use of anticoagulants; Z95.2 Presence of prosthetic heart valve; K57.90 Diverticulosis of intestine, part unspecified, without perforation or abscess without bleeding

== ENCOUNTER 2017-07-22 10:00 | Outpatient (CLI) | payer MEDICARE, OTHER ==
[~2017-07-22] VITALS: Ht 162.6 cm; Wt 58.2 kg
[~2017-07-22 10:00] MED LIST changes: +BAYER CHEWABLE81 MG PO; +PLAVIX75 MG PO
[2017-07-22 11:35] VITALS: Ht 162.6 cm; Wt 58.2 kg
--- NOTE | 2017-07-22 12:57 | NUR ---
1205--IV DC'D. DISCHARGE INSTRUCTIONS GIVEN, PT VERBALIZES UNDERSTANDING. PT OFF UNIT VIA WC. LO DEAN
== END 2017-07-22 12:05 | disposition home or self-care (01) ==
LOC: D.OPS 10:00
DX: M81.0 Age-related osteoporosis without current pathological fracture (principal)

== ENCOUNTER 2017-07-31 14:55 | Emergency (ER) | payer MEDICARE, OTHER ==
[2017-07-22 11:35] VITALS: BMI 22.0
== END 2017-07-31 17:55 | disposition home or self-care (01) ==
LOC: D.ER 14:55
DX: S39.012A Strain of muscle, fascia and tendon of lower back, initial encounter (principal); X50.0XXA Overexertion from strenuous movement or load, initial encounter; Y93.89 Activity, other specified; Y92.029 Unspecified place in mobile home as the place of occurrence of the external cause

== ENCOUNTER 2017-11-26 19:24 | Emergency (ER) | payer MEDICARE, OTHER ==
[2017-07-22 11:35] VITALS: BMI 22.0
== END 2017-11-26 20:38 | disposition home or self-care (01) ==
LOC: D.ER 19:24
DX: M79.604 Pain in right leg (principal)

== ENCOUNTER 2018-06-23 16:36 | Outpatient (CLI) | payer MEDICARE, OTHER ==
[~2018-06-23] VITALS: Ht 162.6 cm; Wt 60.0 kg
[2018-06-23 17:23] VITALS: BP 102/49; Ht 162.6 cm; Wt 60.0 kg
== END 2018-06-23 20:56 | disposition home or self-care (01) ==
LOC: D.OPS 16:36
DX: D64.9 Anemia, unspecified (principal); Z01.812 Encounter for preprocedural laboratory examination

== ENCOUNTER 2019-01-16 19:36 | Emergency (ER) | payer MEDICARE, OTHER ==
[2019-01-16 19:43] VITALS: BMI 17.2
[2019-01-16] MEDS ORDERED: PHENERGAN25 M1 PO (19:46)
[2019-01-16] MEDS ORDERED: TYLENOL W/CODEI1 TAB PO (19:47)
[2019-01-16] MEDS ORDERED: BACLOFEN10 MG (19:47)
[2019-01-16] MEDS ORDERED: NEXIUM40 MG PO (19:48)
[2019-01-16] MEDS ORDERED: MEDROL DOSE PACK4 MG PO (19:56)
[2019-01-16 20:00] LABS: BASOPHILS 0.2 % (0-2); EOSINOPHILS 0.7 % (0-7); HEMATOCRIT 30.4 % (36.0-48.0); HEMOGLOBIN 9.4 g/dL (12-16); IMMATURE GRANULOCYTES 0.7 % (0-5); LYMPHOCYTES 20.9 % (15-50); MCH 28.7 pg (26.0-34.0); MCHC 30.9 g/dL (31.0-37.0); MEAN PLATELET VOLUME 9.9 fL (7.4-10.4); MONOCYTES 10.3 % (2-11); NEUTROPHILS 67.2 % (40-80); PLATELET COUNT 164 10x3/uL (130-400); RBC 3.27 10x6/uL (4.00-5.40); RDW 15.4 % (11.5-14.5); WBC 4.1 10x3/uL (4.8-10.8)
[2019-01-16 20:11] LABS: APTT 28.4 SECONDS (22.8-39.4); INR 1.08 (0.85-1.17); PROTIME 13.5 SECONDS (11.6-15.0)
[2019-01-16 20:48] LABS: APPEARANCE CLEAR (CLEAR); BILIRUBIN NEGATIVE (NEGATIVE); COLOR STRAW (YELLOW); GLUCOSE NEGATIVE (NEGATIVE); KETONE NEGATIVE (NEGATIVE); NITRITE NEGATIVE (NEGATIVE); PROTEIN NEGATIVE (NEGATIVE); SPECIFIC GRAVITY 1.005 (1.005-1.020); UROBILINOGEN NORMAL (NORMAL)
[2019-01-16 20:51] LABS: BACTERIA FEW /hpf (NONE SEEN); RED CELLS - URINE RARE /hpf (0-5); WHITE CELLS - URINE OCC /hpf (0-5)
[2019-01-16 21:01] LABS: ALBUMIN 3.2 g/dL (3.4-5.0); ALKALINE PHOSPHATASE 51 U/L (46-116); ALT (SGPT) 13 U/L (10-68); BILIRUBIN - TOTAL 0.28 mg/dL (0.2-1.3); CALC OSMOLALITY 287 mosm/kg (275-300); CALCIUM 8.5 mg/dL (8.5-10.1); CHLORIDE - SERUM 108 mmol/L (98-107); CREATININE - SERUM 0.7 mg/dL (0.6-1.3); GLUCOSE 102 mg/dL (74-106); POTASSIUM - SERUM 3.6 mmol/L (3.5-5.1); PROTEIN - SERUM 6.6 g/dL (6.4-8.2); SODIUM 144 mmol/L (136-145); UREA NITROGEN 15 mg/dL (7-18); eGFR NON AFRICAN AMERICAN 84 mL/min (90-120)
[2019-01-16 21:11] LABS: CKMB 0.4 U/L (0.0-3.6); CREATINE KINASE 26 UL (21-215); MAGNESIUM - SERUM 1.6 mg/dL (1.8-2.4); THYROID STIMULATING HORMONE 3.36 uIU/mL (0.36-3.74)
[2019-01-16 21:12] LABS: TROPONIN-I < 0.017 ng/mL (0.000-0.060)
[2019-01-16 22:00] LABS: UDS - AMPHET NEGATIVE QUAL (NEGATIVE); UDS - BARB NEGATIVE QUAL (NEGATIVE); UDS - BENZO NEGATIVE QUAL (NEGATIVE); UDS - COCAINE NEGATIVE QUAL (NEGATIVE); UDS - OPIATE POSITIVE QUAL (NEGATIVE); UDS - PCP NEGATIVE QUAL (NEGATIVE); UDS - THC NEGATIVE QUAL (NEGATIVE)
[2019-01-16] MEDS ORDERED: CIPRO500 MG PO (22:42)
[2019-01-16 23:05] VITALS: BP 133/76
== END 2019-01-16 23:05 | disposition home or self-care (01) ==
LOC: D.ER 19:36
PROVIDERS: Family Medicine
DX: M62.830 Muscle spasm of back (principal); T40.2X5A Adverse effect of other opioids, initial encounter; Y92.019 Unspecified place in single-family (private) house as the place of occurrence of the external cause; R25.2 Cramp and spasm

== ENCOUNTER 2019-07-29 06:44 | Observation (INO) | payer MEDICARE, OTHER ==
[~2019-07-29] VITALS: Ht 162.6 cm; Wt 63.2 kg
[2019-07-29] VITALS (8 sets, daily range): BP systolic 90–127; BP diastolic 43–74; Ht 162.6 cm; Wt 63.2 kg
[~2019-07-29 06:44] MED LIST changes: +BACLOFEN10 MG PO; +CIPRO500 MG PO; +MEDROL DOSE PACK4 MG PO; +PHENERGAN25 M1 PO; +TYLENOL W/CODEI1 TAB PO
[2019-07-29 07:01] LABS: HEMATOCRIT 32.1 % (36.0-48.0); HEMOGLOBIN 11.3 g/dL (12-16); LYMPHOCYTES 20.5 % (15-50); MCH 32.1 pg (26.0-34.0); MCHC 35.2 g/dL (31.0-37.0); MCV 91.2 fL (80.0-100.0); MEAN PLATELET VOLUME 9.2 fL (7.4-10.4); NEUTROPHILS 66.8 % (40-80); RBC 3.52 10x6/uL (4.00-5.40); RDW 12.8 % (11.5-14.5); WBC 4.8 10x3/uL (4.8-10.8)
[2019-07-29 07:05] LABS: PLATELET COUNT 128 10x3/uL (130-400)
[2019-07-29 07:08] LABS: CALC OSMOLALITY 281 mosm/kg (275-300); CALCIUM 8.9 mg/dL (8.5-10.1); CARBON DIOXIDE 26.6 mmol/L (21.0-32.0); CHLORIDE - SERUM 106 mmol/L (98-107); CREATININE - SERUM 0.8 mg/dL (0.6-1.3); GLUCOSE 97 mg/dL (74-106); POTASSIUM - SERUM 3.8 mmol/L (3.5-5.1); SODIUM 141 mmol/L (136-145); UREA NITROGEN 15 mg/dL (7-18); eGFR NON AFRICAN AMERICAN 72 mL/min (90-120)
[2019-07-29 07:09] LABS: APTT 36.5 SECONDS (22.8-39.4); INR 1.13 (0.85-1.17)
[2019-07-29 07:25] LABS: ALBUMIN 3.3 g/dL (3.4-5.0); ALKALINE PHOSPHATASE 78 U/L (46-116); ALT (SGPT) 25 U/L (10-68); BILIRUBIN - TOTAL 0.49 mg/dL (0.2-1.3); CKMB 0.2 U/L (0.0-3.6); CREATINE KINASE 22 UL (21-215); MAGNESIUM - SERUM 1.7 mg/dL (1.8-2.4); PROTEIN - SERUM 7.2 g/dL (6.4-8.2); TROPONIN-I < 0.017 ng/mL (0.000-0.060)
[2019-07-29 09:25] LABS: CKMB 0.2 U/L (0.0-3.6); CREATINE KINASE 23 UL (21-215); TROPONIN-I < 0.017 ng/mL (0.000-0.060)
[2019-07-29] MEDS ORDERED: LIDODERM 5 %1 PATCH TRANSDERM (10:31)
[2019-07-29] MEDS ORDERED: CYANOCOBAL1000 MCG/4 SC (10:37)
[2019-07-29] MEDS ORDERED: XALATAN 0.0052.5 ML EACH EYE (10:37)
[2019-07-29] MEDS ORDERED: ZOFRAN4 MG PO (10:39)
[2019-07-29 14:03] LABS: CKMB 0.6 U/L (0.0-3.6); CREATINE KINASE 45 UL (21-215); TROPONIN-I < 0.017 ng/mL (0.000-0.060)
--- NOTE | 2019-07-29 17:43 | NUR ---
I have reviewed this patient and I concur with the Shift Assessment completed by the Licensed Practical Nurse today this shift.
--- NOTE | 2019-07-29 19:32 | NUR ---
RECIEVED LAYING IN BED WITH EYES CLOSED. EASILY AROUSES WITH VERBAL STIMULI. IV TO LEFT FA SL.. TELEMETRY IN PLACE. DENUIES ANY NEEDS AT THIS TIME.
[2019-07-29 19:53] LABS: CKMB 0.7 U/L (0.0-3.6); CREATINE KINASE 49 UL (21-215)
[2019-07-29 19:54] LABS: TROPONIN-I < 0.017 ng/mL (0.000-0.060)
[2019-07-30 04:30] VITALS: BP 105/48
[2019-07-30 05:26] LABS: BASOPHILS 0.2 % (0-2); EOSINOPHILS 1.2 % (0-7); HEMATOCRIT 33.7 % (36.0-48.0); HEMOGLOBIN 11.2 g/dL (12-16); IMMATURE GRANULOCYTES 0.2 % (0-5); LYMPHOCYTES 19.5 % (15-50); MCH 31.4 pg (26.0-34.0); MCHC 33.2 g/dL (31.0-37.0); MEAN PLATELET VOLUME 10.1 fL (7.4-10.4); MONOCYTES 11.3 % (2-11); NEUTROPHILS 67.6 % (40-80); PLATELET COUNT 123 10x3/uL (130-400); RBC 3.57 10x6/uL (4.00-5.40); RDW 12.9 % (11.5-14.5); WBC 4.3 10x3/uL (4.8-10.8)
[2019-07-30 05:31] LABS: MCV 94.4 fL (80.0-100.0)
[2019-07-30 05:47] LABS: ALBUMIN 2.9 g/dL (3.4-5.0); ALKALINE PHOSPHATASE 77 U/L (46-116); ALT (SGPT) 24 U/L (10-68); BILIRUBIN - TOTAL 0.38 mg/dL (0.2-1.3); CALC OSMOLALITY 282 mosm/kg (275-300); CALCIUM 8.6 mg/dL (8.5-10.1); CARBON DIOXIDE 26.9 mmol/L (21.0-32.0); CHLORIDE - SERUM 108 mmol/L (98-107); CREATININE - SERUM 0.7 mg/dL (0.6-1.3); GLUCOSE 91 mg/dL (74-106); POTASSIUM - SERUM 3.9 mmol/L (3.5-5.1); PROTEIN - SERUM 6.8 g/dL (6.4-8.2); SODIUM 142 mmol/L (136-145); UREA NITROGEN 13 mg/dL (7-18); eGFR NON AFRICAN AMERICAN 84 mL/min (90-120)
[2019-07-30 07:53] VITALS: BP 104/57
--- NOTE | 2019-07-30 08:33 | NUR ---
AM MEDS GIVEN AT THIS TIME, PT RESTING COMFORTABLY IN BED, DENIES ANY NEEDS AT THIS TIME. CALL LIGHT IN REACH, NAD NOTED, WILL CONTINUE TO MONITOR.
[2019-07-30 11:27] VITALS: BP 119/59
--- NOTE | 2019-07-30 14:32 | NUR ---
GAVE TYLENOL/CODEINE FOR PAIN LEVEL OF 10/10. PT ASKING FOR DOCTOR, INFOMRED PT THAT HE WILL BE ROUNDING SHORLY. PT DENIES ANY OTHER NEEDS AT THIS TIME. CALL LIGHT IN REACH, FAMILY AT BEDSIDE, NAD NOTED, WILL CONTINUE TO MONITOR.
[2019-07-30 15:44] VITALS: BP 116/60
--- NOTE | 2019-07-30 15:50 | MORECARE ---
CASE MANAGEMENT DISCHARGE SUMMARY PATIENT: PRINCESS MULLIGAN UNIT: [id number] ADM DATE: 07/29/19 AGE: 89 : 32 SEX: F ROOM/BED: D.2131 AUTHOR: VÍCTOR BANGURA PHYSICIAN: REFERRING PHYSICIAN: ZANA ROSS MD DATE OF SERVICE: 07/30/19 Discharge Plan Patient Name: PRINCESS MULLIGAN Facility: [facility]:[place] : 1930 Planned Disposition: Anticipated Discharge Date: Discharge Date: Expected LOS: Initial Reviewer: [email or web address] Initial Review Date: 07/30/2019 Generated: 07/30/19 4:50 pm Comments DCP- Discharge Planning Updated by [email or web address]: Lou Rendon on 07/30/19 2:[address] Patient Name: PRINCESS MULLIGAN Admission Status: ER Accout number: [id number] Admission Date: 07-29-2019 : 1930 Admission Diagnosis: Attending: ZANA ROSS Current LOS: 1 Anticipated DC Date: Planned Disposition: Primary Insurance: MEDICARE A & B Discharge Planning Comments: CM met with patient at bedside after explaining CM role and obtaining verbal consent. PATIENT PLANS TO DC TO HOME TODAY. FAMILY IS AT BEDSIDE AND PATIENT IS EXPECTING TO DC TO HOME TODAY. RHYS OSHEA NOTIFIED. CM TO FOLLOW AND ASSIST. Demolitionist: Lou Rendon Coverage Notice Reviewer: [email or web address] Heidy Avery Notice Issued Date-Time: 07/29/2019 15:25 Notice Type: Medicare Outpatient Observation Notice Notice Delivered To: Patient Relationship to Patient: Self Product Representative Name: Delivery Method: HAND - Hand Delivered Valarie Days: Prior Verbal Notification: Recipient Understood Notice: Yes Recipient Signature: Yes Med Rec Note Co-signed by Attending: Coverage Notice Comment: Patient Name: PRINCESS MULLIGAN Page [phone] at 1550 All edits/amendments must be made on the electronic document DICTATION DATE: 07/30/19 1550 ASSESSMENT NURSE: DEUCE 07/30/19 1550 RPT#: [id number] DC DATE: STATUS: ADM IN [facility] [address] [place] [address] END OF REPORT
--- NOTE | 2019-07-30 16:54 | NUR ---
PROVIDED VERBAL AND WRITTEN DISCHARGE TEACHING TO PT WHO VERBALIZED UNDERSTANDING REGARDING TEACHING. PT LEFT UNIT VIA WHEELCHAIR, WITH ALL BELONGINGS, ACCOMPANIED BY FAMILY, NAD NOTED.
--- NOTE | 2019-07-30 17:52 | MORECARE ---
CASE MANAGEMENT DISCHARGE SUMMARY PATIENT: PRINCESS MULLIGAN UNIT: [id number] ADM DATE: 07/29/19 AGE: 89 : 32 SEX: F ROOM/BED: D.2131 AUTHOR: VÍCTOR BANGURA PHYSICIAN: REFERRING PHYSICIAN: ZANA ROSS MD DATE OF SERVICE: 07/30/19 Discharge Plan Patient Name: PRINCESS MULLIGAN Facility: [facility]:[place] : 1930 Planned Disposition: Anticipated Discharge Date: Discharge Date: 07/30/2019 Expected LOS: Initial Reviewer: [email or web address] Initial Review Date: 07/30/2019 Generated: 07/30/19 6:51 pm Comments DCP- Discharge Planning Updated by [email or web address]: Lou Rendon on 07/30/19 2:[address] Patient Name: PRINCESS MULLIGAN Admission Status: ER Accout number: [id number] Admission Date: 07-29-2019 : 1930 Admission Diagnosis: Attending: ZANA ROSS Current LOS: 1 Anticipated DC Date: Planned Disposition: Primary Insurance: MEDICARE A & B Discharge Planning Comments: CM met with patient at bedside after explaining CM role and obtaining verbal consent. PATIENT PLANS TO DC TO HOME TODAY. FAMILY IS AT BEDSIDE AND PATIENT IS EXPECTING TO DC TO HOME TODAY. RHYS OSHEA NOTIFIED. CM TO FOLLOW AND ASSIST. School Crossing Guard Supervisor: Lou Rendon Coverage Notice Reviewer: [email or web address] Heidy Avery Notice Issued Date-Time: 07/29/2019 15:25 Notice Type: Medicare Outpatient Observation Notice Notice Delivered To: Patient Relationship to Patient: Self Round Cutter Operator Name: Delivery Method: HAND - Hand Delivered Valarie Days: Prior Verbal Notification: Recipient Understood Notice: Yes Recipient Signature: Yes Med Rec Note Co-signed by Attending: Coverage Notice Comment: Last DP export: 07/30/19 2:50 Patient Name: PRINCESS MULLIGAN Page [phone] at 1757 All edits/amendments must be made on the electronic document DICTATION DATE: 07/30/191750 BONDED STRAND OPERATOR: DEUCE 07/30/191750 RPT#: [id number] HI DATE:07/30/19 STATUS: DIS IN [facility] [address] [place] [address] END OF REPORT
== END 2019-07-30 16:55 | disposition home or self-care (01) ==
LOC: D.ER 06:44 → D.M2 07:19 → OBSVTIME 07:45 → D.M2 07-30 16:55
PROVIDERS: Family Medicine; ADMIT Family Medicine; ATTEND Family Medicine
DX: R07.89 Other chest pain (principal); I48.91 Unspecified atrial fibrillation; Z95.2 Presence of prosthetic heart valve; M48.56XA Collapsed vertebra, not elsewhere classified, lumbar region, initial encounter for fracture; D64.9 Anemia, unspecified

== ENCOUNTER 2019-08-29 10:43 | Outpatient (CLI) | payer MEDICARE, OTHER ==
[~2019-08-29] VITALS: Ht 162.6 cm; Wt 53.6 kg
--- NOTE | ~2019-08-29 | HEMODYNAMI ---
PATIENT:PRINCESS MULLIGAN MEDICAL RECORD: [id number] : [birth year] LOCATION:YESI ADMISSION DATE: 08/29/19 Generatedon:08/29/201915:01 Patient name: PRINCESS MULLIGAN Patient #: [id number] SSN: D OB: 1930 Date of study: 08/29/2019 Page: Of Hemodynamic Procedure Report Patient Data Patient Demographics Procedure consent was obtained First Name: PRINCESS Gender: Female Last Name: ESE : 1930 Middle Initial: R Age: 89 year(s) Patient #: [id number] Race: Unknown Additional ID: [id number] Contact details [address]: [address] [place] [address] State: [place] City: [place] Zip code: [address] Past Medical History Allergies Allergen Reaction Date Comments Reported Penicillins 08/29/2019 Sulfa drugs 08/29/2019 Admission Admission Data Admission Date: 08/29/2019 Admission Time: 10:43 Procedure Procedure Types Cath Procedure Peripheral Cath Diagnostic Procedure Finishing Machine Operator Peripheral Procedures Kyphoplasty Kyphoplasty Thoracic Procedure Description Procedure Date Procedure Date: 08/29/2019 Procedure Start Time: 14:21 Procedure Staff Name Function Joseph Barker MD Performing Physician Tootie Valladares RT Computer Forensics Examiner Anita Villa RN Nurse Courtney Joseph RN Nurse Jude Saucedo RT Scrub Barry Cabrera CRNA Additional personnel Procedure Data Cath Procedure Fluoroscopy Diagnostic fluoroscopy Total fluoroscopy Time: 5.6 time: 5.6 min min Diagnostic fluoroscopy Total fluoroscopy dose: 138 dose: 138 mGy mGy Procedure Medications Medication Administration Route Dosage Heparin Flush Bag added to field 1 bags (1000units/500ml NS) Lidocaine 1% added to field 20 Ancef (1Gm/50ml NS) I.V.P.B 1 g Hemodynamics Rest Heart Rate: 79 (bpm) Snapshots Pre Cath Intra NCS Post Cath Vital Signs Time Heart Resp SPO2 etCO2 NIBP Rhythm Pain Sedation Rate (ipm) (%) (mmHg) (mmHg) Status Level (bpm) 13:54:29 96 0 113/65(88) NSR 0 (11) 10(A) , No pain 13:58:35 96 36.8 108/58(84) NSR 0 (11) 10(A) , No pain 14:03:34 92 12 Measuring NSR 0 (11) 10(A) , No pain 14:03:36 92 12 111/63(87) NSR 0 (11) 10(A) , No pain 14:07:44 138 13 100 33 98/50(78) NSR 0 (11) 10(A) , No pain 14:11:48 79 14 100 15.8 105/49(76) NSR 0 (11) 10(A) , No pain 14:15:53 80 13 100 16.5 94/51(70) NSR 0 (11) 10(A) , No pain 14:19:55 81 13 100 21 100/53(74) NSR 0 (11) 10(A) , No pain 14:23:59 78 12 100 0 97/47(68) NSR 0 (11) 10(A) , No pain 14:28:23 77 10 100 3 89/40(64) NSR 0 (11) 10(A) , No pain 14:32:21 78 8 100 0.7 80/36(53) NSR 0 (11) 10(A) , No pain 14:36:20 80 8 100 0 77/37(54) NSR 0 (11) 10(A) , No pain 14:40:18 80 7 100 3.7 92/45(66) NSR 0 (11) 10(A) , No pain 14:44:22 82 8 99 3 86/37(58) NSR 0 (11) 10(A) , No pain 14:48:23 82 8 99 10.5 87/41(64) NSR 0 (11) 10(A) , No pain 14:52:25 85 10 99 12.7 88/44(64) NSR 0 (11) 10(A) , No pain 14:56:25 85 9 99 14.3 101/49(67) NSR 0 (11) 10(A) , No pain 15:00:28 86 12 100 13.5 107/53(73) NSR 0 (11) 10(A) , No pain Medications Time Medication Route Dose Verified Delivered Reason Notes Eff ectiveness by by 14:00:53 Ancef (1Gm/50ml I.V.P.B 1 g Joseph Valdez NS) Jake Barker RN, MD 14:06:03 Heparin Flush added 1 Joseph Ruiz used for Bag to bags Lucero Barker MD procedure (1000units/500ml field ESQUEDA NS) 14:06:16 Lidocaine 1% added 20ml Joseph Ruiz for local to vial Lucero Barker MD anesthetic field Procedure Log Time Note 13:47:37 Time tracking: Regular hours (M-F 7:00 - 5:00) 13:48:26 Plan of Care:Hemodynamics will remain stable., Cardiac rhythm will remain stable., Comfort level will be maintained., Respiratory function will remain adequate., Patient/ family verbilizes understanding of procedure., Procedure tolerated without complication., Recovers from procedure without complications.. 13:48:36 Patient received from Outpatients to IR Alert and oriented. Tansferred to table in Prone position. 13:48:50 Signed procedure consent form obtained from patient. 13:48:59 H&P Date Dictated: 08/29/2019 Within 30 days and on chart., H&P Addendu m completed by physician on day of procedure. (MUST COMPLETE FOR ALL OUTPATIENTS). 13:49:01 Pre-procedure instructions explained to patient. 13:49:02 Pre-op teaching completed and patient verbalized understanding. 13:49:09 Family in waiting room. 13:49:19 Patient NPO since Midnight. 13:49:34 Patient allergic to Penicillins 13:49:51 Patient allergic to Sulfa drugs 13:50:13 - 13:50:25 ----Pre-sedation anethsthesia assessment.----see anesthesia notes for monitoring of patient during procedure 13:51:17 IV patent on arrival in left forearm with D5/.45%NaCl at KVO. 13:51:34 Thoracic area was prepped with dura-prep and draped in sterile fashion 13:51:37 - 13:51:44 Use device set IR Diagnostic 13:51:49 Tegaderm 4 x 4 ([id number]) opened to sterile field. 13:51:50 Sterile Angiographic Pack opened to sterile field. 13:51:51 Bag Decanter (2001S) opened to sterile field. 13:53:14 Vital chart was started 14:00:53 Ancef (1Gm/50ml NS) 1 g I.V.P.B was administered by Courtney Joseph RN; ; Verbal order read back and verified. 14:06:03 Heparin Flush Bag (1000units/500ml NS) 1 bags added to field was administered by Joseph Barker MD; used for procedure; Verbal order read back and verified. 14:06:16 Lidocaine 1% 20ml vial added to field was administered by Joseph Barker MD; for local anesthetic; Verbal order read back and verified. 14:11:12 CAROL BNCMNT CURV BALLOON [id number] opened to sterile field. 14:11:13 Carol BONE CEMENT WITH NEEDLE AUTOPLEX Kit opened to sterile field. 14:11:28 [place] BONE BX 11GA kit opened to sterile field. 14:11:54 - 14:12:04 ECG and BP/O2 sat monitors applied to patient. 14:12:05 Baseline sample Acquired. 14:12:06 Full Disclosure recording started 14:12:07 - 14:20:15 Physician arrived 14:20:15 --------ALL STOP TIME OUT------ 14:20:17 Final Timeout: patient, procedure, and site verified with staff and physician. All members of the team are in agreement. 14:20:58 Fire Safety Assessment: A--An alcohol-based skin anteseptic being used preoperatively., C--Open oxygen or nitrous oxide is being used. 14:21:05 Procedure started. 14:21:12 Local anesthetic to Thoracic area with Lidocaine 1% by Joseph Barker MD.INITIAL ACCESS ONLY 14:42:39 Jamshidi needle introduced. 14:42:42 Bone bx needle placed. 14:43:17 Kyphoplasty balloon introduced. 14:44:01 Cement introduced to vertebral body. 14:49:54 Jamshidi needle removed. 14:50:55 Procedure ended.(Physican Out) 14:52:52 Fluoroscopy time 05.60 minutes. 14:52:58 Fluoroscopy dose: 138 mGy 14:52:58 Flurop Dose total: 138 14:53:15 Procedure and supply charges have been captured, reviewed, submitted an d are correct. 14:54:37 Report given to Outpatients. 15:01:49 Vital chart was stopped Device Usage Item Name Manufacture Quantity Catalog Hospital Part Current Minim al Lot# / Number Charge Number Stock Stock Serial# Code Tegaderm 4 x 3M 1 [id number] 4 (1626W) Sterile Cardinal [address] [id number] 5 Angiographic Health Pack Bag Decanter Microtek 1 [id number] 5 () [employer] CAROL Carol 1 [phone] [id number] 1 BNCMNT CURV BALLOON [id number] [place] BONE Carol 1 [id number] 5 CEMENT WITH NEEDLE AUTOPLEX Kit Carol BONE Carol 1 [id number] [id number] 5 BX 11GA kit Signature Audit [place] Stage Time Signature Unsigned Intra-Procedure 08/29/2019 Tootie Valladares 3:01:46 PM RT(R) [facility] [address] [place] [address]
[~2019-08-29 10:43] MED LIST changes: +CYANOCOBAL1000 MCG/4 SC; +LIDODERM 5 %1 PATCH TRANSDERM; +XALATAN 0.0052.5 ML EACH EYE; +ZOFRAN4 MG PO
[2019-08-29 11:08] LABS: BASOPHILS 0.2 % (0-2); EOSINOPHILS 2.7 % (0-7); HEMATOCRIT 30.9 % (36.0-48.0); HEMOGLOBIN 10.4 g/dL (12-16); LYMPHOCYTES 16.6 % (15-50); MCH 31.1 pg (26.0-34.0); MCHC 33.7 g/dL (31.0-37.0); MCV 92.5 fL (80.0-100.0); MEAN PLATELET VOLUME 9.2 fL (7.4-10.4); MONOCYTES 9.5 % (2-11); RBC 3.34 10x6/uL (4.00-5.40); RDW 13.3 % (11.5-14.5); WBC 4.4 10x3/uL (4.8-10.8)
[2019-08-29 11:13] LABS: PLATELET COUNT 161 10x3/uL (130-400)
[2019-08-29 11:28] LABS: APTT 37.6 SECONDS (22.8-39.4); CALC OSMOLALITY 280 mosm/kg (275-300); CALCIUM 8.8 mg/dL (8.5-10.1); CARBON DIOXIDE 30.2 mmol/L (21.0-32.0); CHLORIDE - SERUM 106 mmol/L (98-107); CREATININE - SERUM 0.7 mg/dL (0.6-1.3); GLUCOSE 94 mg/dL (74-106); INR 1.13 (0.85-1.17); POTASSIUM - SERUM 3.8 mmol/L (3.5-5.1); SODIUM 141 mmol/L (136-145); UREA NITROGEN 12 mg/dL (7-18); eGFR NON AFRICAN AMERICAN 84 mL/min (90-120)
[2019-08-29 11:33] LABS: APPEARANCE CLEAR (CLEAR); BILIRUBIN NEGATIVE (NEGATIVE); COLOR U (YELLOW); GLUCOSE NEGATIVE (NEGATIVE); KETONE NEGATIVE (NEGATIVE); NITRITE NEGATIVE (NEGATIVE); PROTEIN NEGATIVE (NEGATIVE); UROBILINOGEN NORMAL (NORMAL)
[2019-08-29 13:30] VITALS: BP 110/53; Ht 162.6 cm; Wt 53.6 kg
[2019-08-29] MEDS ORDERED: BAYER CHEWABLE81 MG PO (13:31)
--- NOTE | 2019-08-29 17:33 | NUR ---
1515 TO 2516 VIA STRETCHER, FAMILY AT BEDSIDE, BEDREST, FLAT, MONITOR ON, SEE POST PROCEDURE CHECKLIST FOR VITAL SIGN TRENDS.
--- NOTE | 2019-08-29 17:34 | NUR ---
1530 BLANKET SUPPLIED FOR COMFORT. WATER GIVEN. DAUGHTER AND SPOUSE AT SIDE. 1545. 3RD BLANKET GIVEN FOR COMFORT. 1600 HOB ELEVATED SLIGHTLY. 1615 HOB ELEVATED SLIGHTLY MORE. FINGER FOOD DIET PROVIDED 1630 HOB ELEVATED SLIGHTLY MORE. 1645 ATE 30%. 1700 ASSISSTED UP TO BR VOIDS QS AMBULATED WELL. IV DC'D WITH CATH INTACT STATES BELIEVES CAN GO HOME DC INSTS. REVIEWED RELEASED IN WC WITH FAMILY.
== END 2019-08-29 17:05 | disposition home or self-care (01) ==
LOC: D.SP 10:43 → D.RAD 13:00 → D.SP 17:05
PROVIDERS: ATTEND General Practice
DX: M48.54XA Collapsed vertebra, not elsewhere classified, thoracic region, initial encounter for fracture (principal); W19.XXXA Unspecified fall, initial encounter

== ENCOUNTER 2020-04-11 10:23 | Inpatient (IN) | payer MEDICARE, OTHER ==
[~2020-04-11] VITALS: Ht 162.6 cm; Wt 53.6 kg
[~2020-04-11 10:23] MED LIST changes: +BETAPACE 80 MG80 MG PO
[2020-04-11] MEDS ORDERED: KLOR-CON 1010 MEQ PO (10:32)
[2020-04-11] MEDS ORDERED: LASIX40 MG PO (10:32)
[2020-04-11] MEDS ORDERED: BACLOFEN10 MG PO (10:33)
[2020-04-11] MEDS ORDERED: BUTALB-APAP-CA1 EACH PO (10:33)
[2020-04-11 10:49] LABS: CALC OSMOLALITY 280 mosm/kg (275-300); CALCIUM 8.9 mg/dL (8.5-10.1); CHLORIDE - SERUM 105 mmol/L (98-107); CREATININE - SERUM 0.9 mg/dL (0.6-1.3); GLUCOSE 122 mg/dL (74-106); POTASSIUM - SERUM 4.4 mmol/L (3.5-5.1); SODIUM 139 mmol/L (136-145); UREA NITROGEN 19 mg/dL (7-18); eGFR NON AFRICAN AMERICAN 62 mL/min (90-120)
[2020-04-11 10:50] LABS: APTT 39.5 SECONDS (22.8-39.4); INR 1.11 (0.85-1.17); PROTIME 14.2 SECONDS (11.6-15.0)
[2020-04-11 11:04] LABS: ALBUMIN 3.3 g/dL (3.4-5.0); ALKALINE PHOSPHATASE 70 U/L (30-120); ALT (SGPT) 17 U/L (10-68); BILIRUBIN - TOTAL 0.29 mg/dL (0.2-1.3); CKMB 0.7 U/L (0.0-3.6); CREATINE KINASE 26 UL (21-215); MAGNESIUM - SERUM 1.8 mg/dL (1.8-2.4); PROTEIN - SERUM 7.1 g/dL (6.4-8.2); TROPONIN-I < 0.017 ng/mL (0.000-0.060)
[2020-04-11 11:19] LABS: BASOPHILS 0.2 % (0-2); EOSINOPHILS 1.1 % (0-7); HEMATOCRIT 35.4 % (36.0-48.0); HEMOGLOBIN 11.9 g/dL (12-16); IMMATURE GRANULOCYTES 0.2 % (0-5); LYMPHOCYTES 11.4 % (15-50); MCH 30.7 pg (26.0-34.0); MCHC 33.6 g/dL (31.0-37.0); MCV 91.5 fL (80.0-100.0); MEAN PLATELET VOLUME 9.6 fL (7.4-10.4); MONOCYTES 5.8 % (2-11); NEUTROPHILS 81.3 % (40-80); PLATELET COUNT 181 10x3/uL (130-400); RBC 3.87 10x6/uL (4.00-5.40); RDW 12.7 % (11.5-14.5); WBC 11.3 10x3/uL (4.8-10.8)
[2020-04-11 11:35] VITALS: BP 93/62
[2020-04-11 12:36] VITALS: BP 93/56
[2020-04-11 14:09] VITALS: BP 108/52; Ht 162.6 cm; Wt 53.6 kg
[2020-04-11 17:58] LABS: CKMB 0.9 U/L (0.0-3.6); CREATINE KINASE 30 UL (21-215); TROPONIN-I 0.022 ng/mL (0.000-0.060)
--- NOTE | 2020-04-11 19:21 | NUR ---
RECEIVED BEDSIDE REPORT. PATIENT IS ALERT AND ORIENTED, RESTING COMFORTABLY IN BED. RESPIRATIONS ARE EVEN AND UNLABORED. NO S/S OF DISTRESS. NO C/O PAIN. CALL LIGHT WITHIN REACH. WILL CPOC.
[2020-04-11 20:00] VITALS: BP 96/48
[2020-04-11 23:03] LABS: CKMB 0.4 U/L (0.0-3.6); CREATINE KINASE 28 UL (21-215)
[2020-04-11 23:04] LABS: TROPONIN-I < 0.017 ng/mL (0.000-0.060)
[2020-04-12] VITALS: BP 92/44
[2020-04-12 04:00] VITALS: BP 100/45
[2020-04-12 05:49] LABS: BASOPHILS 0.2 % (0-2); EOSINOPHILS 0.5 % (0-7); HEMATOCRIT 30.3 % (36.0-48.0); IMMATURE GRANULOCYTES 0.2 % (0-5); LYMPHOCYTES 16.7 % (15-50); MONOCYTES 10.9 % (2-11); NEUTROPHILS 71.5 % (40-80); RBC 3.33 10x6/uL (4.00-5.40); RDW 12.6 % (11.5-14.5)
[2020-04-12 06:01] LABS: PLATELET COUNT 142 10x3/uL (130-400); WBC 5.8 10x3/uL (4.8-10.8)
[2020-04-12 06:19] LABS: ALBUMIN 2.9 g/dL (3.4-5.0); ALKALINE PHOSPHATASE 58 U/L (30-120); ALT (SGPT) 13 U/L (10-68); BILIRUBIN - TOTAL 0.55 mg/dL (0.2-1.3); CALC OSMOLALITY 274 mosm/kg (275-300); CALCIUM 8.6 mg/dL (8.5-10.1); CHLORIDE - SERUM 102 mmol/L (98-107); CKMB 0.8 U/L (0.0-3.6); CREATINE KINASE 25 UL (21-215); CREATININE - SERUM 0.9 mg/dL (0.6-1.3); GLUCOSE 98 mg/dL (74-106); POTASSIUM - SERUM 4.1 mmol/L (3.5-5.1); PROTEIN - SERUM 6.1 g/dL (6.4-8.2); SODIUM 136 mmol/L (136-145); TROPONIN-I < 0.017 ng/mL (0.000-0.060); UREA NITROGEN 20 mg/dL (7-18); eGFR NON AFRICAN AMERICAN 62 mL/min (90-120)
[2020-04-12 08:01] VITALS: BP 96/41
[2020-04-12 12:13] VITALS: BP 92/43
[2020-04-12 15:10] VITALS: BP 97/37
--- NOTE | 2020-04-12 15:10 | NUR ---
UP AMBULATING HALLWAY. GAIT STEADY.
--- NOTE | 2020-04-12 16:44 | NUR ---
TELEMETRY SR. UP AMBULATING HALLWAY WITH . GAIT STEADY.
[2020-04-12 17:36] LABS: % SATURATION 13 % (15-55); IRON 26 ug/dl (35-150); TOTAL IRON BIND CAPACITY 187 ug/dl (260-445); UNSAT IRON BIND CAPACITY 161 ug/dl (150-375)
--- NOTE | 2020-04-12 19:37 | NUR ---
RECEIVED BEDSIDE REPORT. PATIENT IS ALERT AND ORIENTED, SITTING ON EDGE OF BED VISITING WITH . RESPIRATIONS ARE EVEN AND UNLABORED. NO S/S OF DISTRESS. NO C/O PAIN. DENIES NEEDS. CALL LIGHT WITHIN REACH. WILL CPOC.
[2020-04-12 20:00] VITALS: BP 99/42
[2020-04-13] VITALS: BP 102/36
[2020-04-13 04:00] VITALS: BP 103/50
[2020-04-13 06:25] LABS: BASOPHILS 0.2 % (0-2); EOSINOPHILS 1.1 % (0-7); HEMATOCRIT 30.4 % (36.0-48.0); IMMATURE GRANULOCYTES 0.2 % (0-5); LYMPHOCYTES 22.4 % (15-50); MCH 29.7 pg (26.0-34.0); MCHC 32.9 g/dL (31.0-37.0); MCV 90.2 fL (80.0-100.0); MEAN PLATELET VOLUME 9.7 fL (7.4-10.4); MONOCYTES 10.8 % (2-11); NEUTROPHILS 65.3 % (40-80); PLATELET COUNT 126 10x3/uL (130-400); RBC 3.37 10x6/uL (4.00-5.40); RDW 12.3 % (11.5-14.5); WBC 4.6 10x3/uL (4.8-10.8)
[2020-04-13 07:06] LABS: ALBUMIN 2.9 g/dL (3.4-5.0); ANION GAP 14.2 mmol/L (8-16); BILIRUBIN - TOTAL 0.41 mg/dL (0.2-1.3); CALCIUM 8.4 mg/dL (8.5-10.1); CARBON DIOXIDE 28.5 mmol/L (21.0-32.0); CREATININE - SERUM 0.8 mg/dL (0.6-1.3); POTASSIUM - SERUM 3.7 mmol/L (3.5-5.1); PROTEIN - SERUM 6.1 g/dL (6.4-8.2)
--- NOTE | 2020-04-13 07:14 | NUR ---
PT LAYING SUPINE, RR EVEN AND UNLABORED. DENIES NEEDS OR PAIN AT THIS TIME. CALL LIGHT WITHIN REACH. BED IN LOWEST POSITION. WILL CONTINUE TO MONITOR.
[2020-04-13 09:11] VITALS: BP 103/50
[2020-04-13 12:04] VITALS: BP 98/40
--- NOTE | 2020-04-13 13:17 | MORECARE ---
CASE MANAGEMENT DISCHARGE SUMMARY PATIENT: PRINCESS MULLIGAN UNIT: [id number] ADM DATE: 04/12/20 AGE: 89 : 34 SEX: F ROOM/BED: D.6466 AUTHOR: SVETA,DOC PHYSICIAN: REFERRING PHYSICIAN: JAVIER CAVAZOS MD DATE OF SERVICE: 04/13/20 Discharge Plan Patient Name: PRINCESS MULLIGAN Facility: [facility]:[place] : 1930 Planned Disposition: Home Anticipated Discharge Date: 04/13/20 Discharge Date: Expected LOS: 1 Initial Reviewer: [email or web address] Initial Review Date: 04/11/2020 Generated: 04/13/20 2:17 pm Comments DCP- Discharge Planning Updated by [email or web address]: Elvia Bowman on 04/13/20 12:[address] CM met with patient to discuss initial discharge planning. Patient is in agreement to proceed with the assessment. Patient reports that she lives at home independently with her , Clarence mulligan [phone]. Patient is alert/oriented. Stairs/steps: 1. PCP: Dr. Vizcaino. Pharmacy: [facility], [facility], mail-off. Patient states she has been able to obtain all of her prescribed medications. HHS: Declines. DME: Walker, cane, shower chair, grab bars in shower. Patient gives permission to speak with family members.. Emergency contact: Clarence Mulligan, spouse. 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 CM discussed the availability of HH, Rehab, SNF, OP Therapy, DME services. Patient denies the need for additional services at this time and feels safe returning to previous environment. Patient denies hospitalization within the past 30 days. 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 Transportation at time of discharge: Clarence. DCPIA - Discharge Planning Initial Assessment Updated by [email or web address]: Elvia Bowman on 04/13/20 1:16 pm * Is the patient Alert and Oriented? Yes * How many steps to enter\exit or inside your home? * PCP Dr. Vizcaino * Pharmacy [facility]. * Preadmission Environment Home with Family * ADLs Independent * Equipment Cane Grab Bars Rolling Walker Shower Chair * Other Equipment NA * List name and contact numbers for known caregivers / representatives who currently or will assist patient after discharge: Clarence Mulligan (spouse) [phone] * Verbal permission to speak to the caregivers and representatives has been obtained from the patient. Yes * Community resources currently utilized None * Please name any agencies selected above. NA * Additional services required to return to the preadmission environment? No * Can the patient safely return to the preadmission environment? Yes * Has this patient been hospitalized within the prior 30 days at any hospital? No Coverage Notice Reviewer: [id number] Heidy Bowman Notice Issued Date-Time: 04/12/2020 14:53 Notice Type: Medicare Outpatient Observation Notice Notice Delivered To: Patient Relationship to Patient: Self Mail Messenger Name: Princess Mulligan Delivery Method: HAND - Hand Delivered Valarie Days: Prior Verbal Notification: Recipient Understood Notice: Yes Recipient Signature: Yes Med Rec Note Co-signed by Attending: Coverage Notice Comment: CARTER signed Patient Name: PRINCESS MULLIGAN Page [phone] at 1317 All edits/amendments must be made on the electronic document DICTATION DATE: 04/13/20 1317 CONTENT ENGINEER: DEUCE 04/13/20 1317 RPT#: [id number] DC DATE: STATUS: ADM IN [facility] [address] [place] [address] END OF REPORT
--- NOTE | 2020-04-13 14:36 | NUR ---
D/C INSTRUCTIONS REVIEWED WITH PT AND FAMILY MEMBER. BOTH VERBALIZED UNDERSTANDING. IV D/C WITH CATHTER TIP INTACT. PT LEFT VIA WHEELCHAIR WITH ALL BELONGINGS TO PERSONAL VEHICLE.
--- NOTE | 2020-04-14 13:01 | MORECARE ---
CASE MANAGEMENT DISCHARGE SUMMARY PATIENT: PRINCESS MULLIGAN UNIT: [id number] ADM DATE: 04/12/20 AGE: 89 : 34 SEX: F ROOM/BED: D.8171 AUTHOR: VÍCTOR BANGURA PHYSICIAN: REFERRING PHYSICIAN: JAVIER CAVAZOS MD DATE OF SERVICE: 04/14/20 Discharge Plan Patient Name: PRINCESS MULLIGAN Facility: [facility]:[place] : 1930 Planned Disposition: Home Anticipated Discharge Date: 04/13/20 Discharge Date: 04/13/2020 Expected LOS: 1 Initial Reviewer: [id number] Initial Review Date: 04/11/2020 Generated: 04/14/20 2:01 pm Comments DCP- Discharge Planning Updated by [email or web address]: Elvia Bowman on 04/13/20 12:[address] CM met with patient to discuss initial discharge planning. Patient is in agreement to proceed with the assessment. Patient reports that she lives at home independently with her , Clarence mulligan [phone]. Patient is alert/oriented. Stairs/steps: 1. PCP: Dr. Vizcaino. Pharmacy: [facility], mail-off. Patient states she has been able to obtain all of her prescribed medications. HHS: Declines. DME: Walker, cane, shower chair, grab bars in shower. Patient gives permission to speak with family members.. Emergency contact: Clarence Mulligan, spouse. 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 CM discussed the availability of HH, Rehab, SNF, OP Therapy, DME services. Patient denies the need for additional services at this time and feels safe returning to previous environment. Patient denies hospitalization within the past 30 days. 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 Transportation at time of discharge: Clarence. DCPIA - Discharge Planning Initial Assessment Updated by [id number]: Elvia Bowman on 04/13/20 1:16 pm * Is the patient Alert and Oriented? Yes * How many steps to enter\exit or inside your home? * PCP Dr. Vizcaino * Pharmacy [facility]. * Preadmission Environment Home with Family * ADLs Independent * Equipment Cane Grab Bars Rolling Walker Shower Chair * Other Equipment NA * List name and contact numbers for known caregivers / representatives who currently or will assist patient after discharge: Clarence Mulligan (spouse) [phone] * Verbal permission to speak to the caregivers and representatives has been obtained from the patient. Yes * Community resources currently utilized None * Please name any agencies selected above. NA * Additional services required to return to the preadmission environment? No * Can the patient safely return to the preadmission environment? Yes * Has this patient been hospitalized within the prior 30 days at any hospital? No Coverage Notice Reviewer: [id number] Heidy Bowman Notice Issued Date-Time: 04/12/2020 14:53 Notice Type: Medicare Outpatient Observation Notice Notice Delivered To: Patient Relationship to Patient: Self Solid Waste Manager Name: Princess Mulligan Delivery Method: HAND - Hand Delivered Valarie Days: Prior Verbal Notification: Recipient Understood Notice: Yes Recipient Signature: Yes Med Rec Note Co-signed by Attending: Coverage Notice Comment: RAUL signed Last DP export: 04/13/20 12:17 pm Patient Name: PRINCESS MULLIGAN Page [phone] at 1301 All edits/amendments must be made on the electronic document DICTATION DATE: 04/14/20 1301 FUR TRIMMING MACHINE OPERATOR: DEUCE 04/14/20 1301 RPT#: [id number] DC DATE:04/13/20 STATUS: DIS IN [facility] [address] [place] [address] END OF REPORT
== END 2020-04-13 14:47 | disposition home or self-care (01) | DRG 309 ==
LOC: D.ER 10:23 → D.M2 12:29 → OBSVTIME 12:30 → D.M2 04-12 19:08
PROVIDERS: Family Medicine; ADMIT Family Medicine; ATTEND Family Medicine
DX: I48.0 Paroxysmal atrial fibrillation (principal); I50.22 Chronic systolic (congestive) heart failure; I20.0 Unstable angina; I08.0 Rheumatic disorders of both mitral and aortic valves; D64.9 Anemia, unspecified

== ENCOUNTER 2020-04-15 16:31 | Inpatient (IN) | payer MEDICARE, OTHER ==
[~2020-04-15] VITALS: Ht 162.6 cm; Wt 55.5 kg
[~2020-04-15 16:31] MED LIST changes: +KLOR-CON 1010 MEQ PO; +LASIX40 MG PO
[2020-04-15 17:58] VITALS: BP 94/53
[2020-04-15 18:24] LABS: BASOPHILS 0.2 % (0-2); EOSINOPHILS 1.7 % (0-7); HEMOGLOBIN 11.4 g/dL (12-16); IMMATURE GRANULOCYTES 0.2 % (0-5); MCH 30.7 pg (26.0-34.0); MCHC 33.5 g/dL (31.0-37.0); MCV 91.6 fL (80.0-100.0); MEAN PLATELET VOLUME 9.7 fL (7.4-10.4); MONOCYTES 11.8 % (2-11); NEUTROPHILS 65.1 % (40-80); RBC 3.71 10x6/uL (4.00-5.40); RDW 12.5 % (11.5-14.5); WBC 4.7 10x3/uL (4.8-10.8)
[2020-04-15 18:29] LABS: PLATELET COUNT 152 10x3/uL (130-400)
[2020-04-15 18:36] LABS: APTT 37.3 SECONDS (22.8-39.4); INR 1.11 (0.85-1.17); PROTIME 14.2 SECONDS (11.6-15.0)
[2020-04-15 18:38] LABS: CALC OSMOLALITY 284 mosm/kg (275-300); CALCIUM 8.5 mg/dL (8.5-10.1); CARBON DIOXIDE 29.1 mmol/L (21.0-32.0); CHLORIDE - SERUM 108 mmol/L (98-107); CREATININE - SERUM 0.7 mg/dL (0.6-1.3); GLUCOSE 91 mg/dL (74-106); POTASSIUM - SERUM 4.2 mmol/L (3.5-5.1); SODIUM 142 mmol/L (136-145); UREA NITROGEN 19 mg/dL (7-18); eGFR NON AFRICAN AMERICAN 83 mL/min (90-120)
[2020-04-15 18:46] VITALS: BP 106/50
[2020-04-15 18:53] LABS: ALBUMIN 3.1 g/dL (3.4-5.0); ALKALINE PHOSPHATASE 60 U/L (30-120); ALT (SGPT) 19 U/L (10-68); BILIRUBIN - TOTAL 0.39 mg/dL (0.2-1.3); CKMB 0.6 U/L (0.0-3.6); CREATINE KINASE 25 UL (21-215); MAGNESIUM - SERUM 1.9 mg/dL (1.8-2.4); PROTEIN - SERUM 6.9 g/dL (6.4-8.2)
[2020-04-15 18:56] LABS: TROPONIN-I < 0.017 ng/mL (0.000-0.060)
[2020-04-15 20:44] VITALS: BP 97/51
[2020-04-15 21:19] VITALS: BP 97/51
--- NOTE | 2020-04-15 21:27 | NUR ---
PT ARRIVED VIA STRETCHER TO ROOM 2118. NO DISTRESS NOTED.
[2020-04-15] MEDS ORDERED: BETAPACE 120 M120 MG PO (21:38)
[2020-04-15 22:09] VITALS: BP 110/63; Ht 162.6 cm; Wt 55.5 kg
--- NOTE | 2020-04-15 22:34 | NUR ---
ADMISSION ASSESSMENT, HISTORY AND HOME MED LIST COMPLETED. PT DENIED ANY DISCOMFORT. ALERT AND ORIENTED TO PERSON, PLACE AND TIME. PETER. IV TO RAC WITH CARDIZEM AT 5MG/HR. IV PATENT. LUNGS ESSENTIALLY CTA. CAF PER CM HR 75. VSS. SR UP X1,CALL LIGHT WITHIN REACH.
[2020-04-16] VITALS: BP 91/43
--- NOTE | 2020-04-16 00:47 | NUR ---
PT RESTING WITH EYES CLOSED. RESP EVEN AND REGULAR. SR UP X2, CALL LIGHT WITHIN REACH.
--- NOTE | 2020-04-16 02:16 | NUR ---
PT RESTING WITH EYES CLOSED. RESP EVEN AND REGULAR. SR UP X2, CALL LIGHT WITHIN REACH.
--- NOTE | 2020-04-16 03:45 | NUR ---
ASSISTED PT TO BR. VOIDED 200CC OF YELLOW URNE. ASSISTED BACK TO BED. GAIT EVEN AND STEADY. SR UP X2, CALL LIGHT WITHIN REACH.
[2020-04-16 04:00] VITALS: BP 98/49
[2020-04-16 05:59] LABS: BASOPHILS 0.3 % (0-2); EOSINOPHILS 1.6 % (0-7); HEMATOCRIT 31.4 % (36.0-48.0); HEMOGLOBIN 10.2 g/dL (12-16); IMMATURE GRANULOCYTES 0.3 % (0-5); LYMPHOCYTES 30.8 % (15-50); MCH 29.4 pg (26.0-34.0); MCHC 32.5 g/dL (31.0-37.0); MCV 90.5 fL (80.0-100.0); MONOCYTES 9.3 % (2-11); NEUTROPHILS 57.7 % (40-80); PLATELET COUNT 159 10x3/uL (130-400); RBC 3.47 10x6/uL (4.00-5.40); RDW 12.7 % (11.5-14.5); WBC 3.7 10x3/uL (4.8-10.8)
[2020-04-16 07:00] LABS: ALBUMIN 2.7 g/dL (3.4-5.0); ALKALINE PHOSPHATASE 53 U/L (30-120); ALT (SGPT) 15 U/L (10-68); BILIRUBIN - TOTAL 0.31 mg/dL (0.2-1.3); CALC OSMOLALITY 286 mosm/kg (275-300); CALCIUM 8.4 mg/dL (8.5-10.1); CARBON DIOXIDE 25.8 mmol/L (21.0-32.0); CHLORIDE - SERUM 111 mmol/L (98-107); CKMB 0.4 U/L (0.0-3.6); CREATINE KINASE 20 UL (21-215); CREATININE - SERUM 0.8 mg/dL (0.6-1.3); GLUCOSE 82 mg/dL (74-106); MAGNESIUM - SERUM 1.8 mg/dL (1.8-2.4); POTASSIUM - SERUM 3.7 mmol/L (3.5-5.1); PRO BNP 12163 pg/mL (0-450); PROTEIN - SERUM 5.7 g/dL (6.4-8.2); SODIUM 144 mmol/L (136-145); UREA NITROGEN 16 mg/dL (7-18); eGFR NON AFRICAN AMERICAN 72 mL/min (90-120)
[2020-04-16 07:04] LABS: TROPONIN-I < 0.017 ng/mL (0.000-0.060)
--- NOTE | 2020-04-16 07:15 | NUR ---
RECEIVED PT IN BED AAOX4 RESP UNLABORED SKIN W/D COLOR WNL NAD NOTED DENIES ANY PAIN OR DISCOMFORT NO NEEDS WILL CONT TO MONITOR
[2020-04-16 08:01] LABS: APTT 44.5 SECONDS (22.8-39.4); INR 1.12 (0.85-1.17); PROTIME 14.3 SECONDS (11.6-15.0)
[2020-04-16 11:35] VITALS: BP 106/52
[2020-04-16 14:47] VITALS: BP 113/64
--- NOTE | 2020-04-16 19:41 | NUR ---
RECEIVED BEDSIDE REPORT. PATIENT IS ALERT AND ORIENTED, RESTING COMFORTABLY IN BED. RESPIRATIONS ARE EVEN AND UNLABORED. NO S/S OF DISTRESS. NO C/O PAIN. CALL LIGHT WITHIN REACH. WILL CPOC.
[2020-04-16 20:00] VITALS: BP 113/53
--- NOTE | 2020-04-16 22:23 | NUR ---
PATIENT RESTING COMFORTABLY IN BED. RESPIRATIONS ARE EVEN AND UNLABORED. NO S/S OF DISTRESS. NO C/O PAIN. CALL LIGHT WITHIN REACH. WILL CPOC.
[2020-04-17 04:00] VITALS: BP 117/60
[2020-04-17 05:54] LABS: BASOPHILS 0.3 % (0-2); EOSINOPHILS 1.5 % (0-7); HEMATOCRIT 30.3 % (36.0-48.0); HEMOGLOBIN 10.2 g/dL (12-16); IMMATURE GRANULOCYTES 0.3 % (0-5); LYMPHOCYTES 24.7 % (15-50); MCH 30.1 pg (26.0-34.0); MCHC 33.7 g/dL (31.0-37.0); MCV 89.4 fL (80.0-100.0); MEAN PLATELET VOLUME 9.7 fL (7.4-10.4); MONOCYTES 9.3 % (2-11); NEUTROPHILS 63.9 % (40-80); PLATELET COUNT 158 10x3/uL (130-400); RBC 3.39 10x6/uL (4.00-5.40); RDW 12.4 % (11.5-14.5); WBC 3.9 10x3/uL (4.8-10.8)
[2020-04-17 06:05] LABS: ALBUMIN 2.8 g/dL (3.4-5.0); ANION GAP 11.6 mmol/L (8-16); BILIRUBIN - TOTAL 0.39 mg/dL (0.2-1.3); CALCIUM 8.1 mg/dL (8.5-10.1); CARBON DIOXIDE 24.6 mmol/L (21.0-32.0); CREATININE - SERUM 0.9 mg/dL (0.6-1.3); MAGNESIUM - SERUM 1.6 mg/dL (1.8-2.4); POTASSIUM - SERUM 3.2 mmol/L (3.5-5.1); PROTEIN - SERUM 6.5 g/dL (6.4-8.2)
[2020-04-17 07:58] VITALS: BP 126/64
[2020-04-17] MEDS ORDERED: KLOR-CON 1010 MEQ PO (11:22)
[2020-04-17] MEDS ORDERED: CARDIZEM LA180 MG PO (11:22)
[2020-04-17 11:40] VITALS: BP 101/57
--- NOTE | 2020-04-17 13:00 | NUR ---
IV AND TELEMETRY DCD FOR DC.
--- NOTE | 2020-04-17 14:14 | NUR ---
LEFT HOSPITOL WITH , REFUSING TO WAIT ON PAPERWORK. NOTIFIED ON PHONE HER PERSCRIPTIONS, STATES HER GRANDSON THAT WORKS HERE WILL PICK IT UP.
== END 2020-04-17 14:18 | disposition home or self-care (01) | DRG 309 ==
LOC: D.ER 16:31 → D.M2 19:02
PROVIDERS: Family Medicine; ADMIT Family Medicine; ATTEND Family Medicine
DX: I48.0 Paroxysmal atrial fibrillation (principal); I50.22 Chronic systolic (congestive) heart failure; D64.9 Anemia, unspecified; R00.0 Tachycardia, unspecified; I08.0 Rheumatic disorders of both mitral and aortic valves; I95.9 Hypotension, unspecified